=== PATIENT | female | born 1970 | race Caucasian/White ===

== ENCOUNTER 2020-08-02 16:42 | Emergency (ER) | payer MEDICAID, OTHER ==
--- OUTSIDE RECORDS SUMMARY | 2020-08-02 16:45 | XMS REPORT | Continuity of Care Document ---
:1970 Author Organization [facility] t Address [address] [place] [address] Care Team Providers Name Role Phone Provider, Urgent Care Attending Clinician Unavailable Sim DO Attending Clinician Problems This patient has no known problems. Allergies, Adverse Reactions, Alerts This patient has no known allergies or adverse reactions. Medications This patient has no known medications. Procedures This patient has no known procedures. Encounters Start End Encounter Admission Attending Care Care Encounter Source Date/Time Date/Time Type Type Clinicians Facility Department ID 2020-07-28 2020-07-28 Urgent Suzanne [facility] [id number] 18:16:33 18:36:33 Care [facility] [id number] [facility] [id number] Professio [phone] nal 044 Office Building One 2019-11-07 2019-11-07 Office HERIBERTO Montemayor [id number] 11:03:22 11:23:22 Visit [facility] [id number] [place] [id number] Professio [phone] nal [phone] Building Results This patient has no known results.
[2020-08-02 18:03] LABS: Urine Blood TRACE (Negative); Urine Glucose NEGATIVE (Negative); Urine Protein TRACE (Negative)
[2020-08-02 18:33] LABS: Urine Amorphous Sediment 2+ /HPF (NONE SEEN); Urine Bacteria 20-50 /HPF (<20); Urine RBC <5 /HPF (NONE SEEN)
[2020-08-02 18:48] LABS: Potassium 3.6 mmol/L (3.5-5.1)
--- NOTE | 2020-08-02 19:03 | RAD REPORT ---
EXAM DESCRIPTION: CT - Abdomen Pelvis W Contrast - 08/02/2020 6:49 pm CLINICAL HISTORY: Abdominal pain COMPARISON: CT scan 2016. TECHNIQUE: Computed axial tomography of the abdomen pelvis was obtained. 100 cc Isovue-300 was admin istered intravenously. Oral contrast was not requested which limits evaluation of bowel. All CT scans are performed using dose optimization technique as appropriate and may include automated exposure control or mA/KV adjustment according to patient size. FINDINGS: Subcentimeter bilateral lung nodules unchanged. The liver, spleen, pancreas, adrenal and kidneys appear unremarkable. There is no evidence of diverticulitis. Normal appendix. Tiny umbilical hernia. Cholecystectomy IMPRESSION: No acute abnormality is displayed.
--- NOTE | 2020-08-02 19:27 | ER ---
Nurse's Notes [facility] Name: Cecille Del Cid Age: 50 yrs Sex: Female : 1970 Arrival Date: 08/02/2020 Time: 16:49 Bed 13 Private MD: Diagnosis: Urinary tract infection, site not specified Presentation: 08/02 16:53 Chief complaint: Patient states: "I was seen in [place] last week and given an jd3 antibiotic for a UTI and now I think I have a yeast infection that has moved to my kidneys.". Coronavirus screen: At this time, the client does not indicate any symptoms associated with coronavirus-19. Ebola Screen: Patient negative for fever greater than or equal to 101.5 degrees Fahrenheit, and additional compatible Ebola Virus Disease symptoms. Initial Sepsis Screen: Does the patient meet any 2 criteria? No. Patient's initial sepsis screen is negative. Does the patient have a suspected source of infection? No. Patient's initial sepsis screen is negative. Risk Assessment: Do you want to hurt yourself or someone else? Patient reports no desire to harm self or others. Onset of symptoms was July 09, 2020. 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 - Social history:: Smoking status: Patient reports the use of cigarette tobacco products, smokes one pack cigarettes per day. Screenin:39 Abuse screen: Denies threats or abuse. Denies injuries from another. Nutritional zb screening: No deficits noted. Tuberculosis screening: No symptoms or risk factors identified. Fall Risk None identified. Assessment: 17:15 Reassessment: ecp at bedside. zb 17:38 General: Appears in no apparent distress. uncomfortable, Behavior is calm, cooperative, zb appropriate for age. Pain: Complains of pain in back. Neuro: Level of Consciousness is awake, alert, obeys commands, Oriented to person, place, time, situation. Cardiovascular: Patient's skin is warm and dry. Respiratory: Airway is patent Respiratory effort is even, unlabored, Respiratory pattern is regular, symmetrical. : Urine is cloudy, Reports urgency, urinary frequency, vaginal itching. Derm: Skin is intact, is healthy with good turgor, Skin is dry, Skin is normal, Skin temperature is warm. Musculoskeletal: Range of motion: intact in all extremities. 18:38 Reassessment: Patient appears in no apparent distress at this time. Patient and/or zb family updated on plan of care and expected duration. Pain level reassessed. Patient is alert, oriented x 3, equal unlabored respirations, skin warm/dry/pink. 18:58 Reassessment: patient returned from ct. zb 19:45 Reassessment: Patient appears in no apparent distress at this time. Patient and/or zb family updated on plan of care and expected duration. Pain level reassessed. Patient is alert, oriented x 3, equal unlabored respirations, skin warm/dry/pink. D/C INSTRUCTIONS GIVEN. PT AMBULATED OUT. GAIT STEADY AND EVEN ON D/C. Vital Signs: 16:57 BP 145 / 101; Pulse 114; Resp 17 S; Temp 98.0(TE); Pulse Ox 98% on R/A; Weight 90.72 kg jd3 (R); Height 5 ft. 2 in. (157.48 cm) (R); Pain 9/10; 19:44 BP 140 / 95; Pulse 100; Resp 16; Pulse Ox 99% on R/A; zb 16:57 Body Mass Index 36.58 (90.72 kg, 157.48 cm) jd3 ED Course: 16:49 Patient arrived in ED. am2 16:54 Triage completed. jd3 16:58 Arm band placed on. jd3 17:00 Tierra Gay FNP-C is [facility]. kb 17:00 Joel Lyman MD is Attending Physician. kb 17:15 Karina Pat RN is Primary Nurse. zb 17:39 Urine collected: clean catch specimen, maegan colored. zb 17:40 Allergy band placed. Bed in low position. Call light in reach. Side rails up X 1. Pulse zb ox on. NIBP on. Door closed. Noise minimized. 18:49 CT Abd/Pelvis - IV Contrast Only In Process Unspecified. EDMS 19:44 No provider procedures requiring assistance completed. IV discontinued, intact, zb bleeding controlled, No redness/swelling at site. Pressure dressing applied. Administered Medications: No medications were administered Outcome: 19:27 Discharge ordered by . kb 19:45 Discharged to home ambulatory, with family. zb 19:45 Condition: stable 19:45 Discharge instructions given to patient, Instructed on discharge instructions, follow up and referral plans. medication usage, Demonstrated understanding of instructions, follow-up care, medications, Prescriptions given X 2. 19:45 Patient left the ED. zb Signatures: Dispatcher [employer] EDMS Tierra Gay, SEAM FELLER-C SEAM FELLER-CkWendy Vanegas Jonathon, RN RN Karina Amaral RN RN zb
--- NOTE | 2020-08-02 19:27 | EDPHYS ---
Physician Documentation [facility] Name: Cecille Del Cid Age: 50 yrs Sex: Female : 1970 Arrival Date: 08/02/2020 Time: 16:49 Bed 13 Private MD: ZOHAIB Physician Joel Lyman HPI: 08/02 18:50 This 50 yrs old Female presents to ER via Ambulatory with complaints of Flank kb Pain, Back Pain. 18:50 The patient complains of pain in the left flank and right flank. The pain radiates to kb the abdomen. Onset: The symptoms/episode began/occurred 2 month(s) ago, and became worse today. Modifying factors: The symptoms are alleviated by nothing. the symptoms are aggravated by nothing. Associated signs and symptoms: Pertinent positives: dysuria. Severity of pain: At its worst the pain was moderate in the emergency department the pain is unchanged. The patient has not experienced similar symptoms in the past. The patient has been recently seen by a physician:. Pt reports she has had a UTI for 2 months. Reports foul smelling urine and intermittent dysuria. Went to PCP on 07/28/20 and was given keflex for a UTI. States it wasn't working so she stopped taking it yesterday. Now having bilateral flank pain. 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 - Social history:: Smoking status: Patient reports the use of cigarette tobacco products, smokes one pack cigarettes per day. ROS: 18:49 Constitutional: Negative for fever, chills, and weight loss, Abdomen/GI: Negative for kb abdominal pain, nausea, vomiting, diarrhea, and constipation, MS/Extremity: Negative for injury and deformity, Skin: Negative for injury, rash, and discoloration, Neuro: Negative for headache, weakness, numbness, tingling, and seizure. 18:49 Back: Positive for flank pain, bilaterally. 18:49 : Positive for burning with urination, foul smelling urine. Exam: 18:50 Constitutional: This is a well developed, well nourished patient who is awake, alert, kb and in no acute distress. Head/Face: Normocephalic, atraumatic. Cardiovascular: Regular rate and rhythm with a normal S1 and S2. No gallops, murmurs, or rubs. No pulse deficits. Respiratory: Respirations even and unlabored. No increased work of breathing, no retractions or nasal flaring. Skin: Warm, dry with normal turgor. Normal color. MS/ Extremity: Pulses equal, no cyanosis. Neurovascular intact. Full, normal range of motion. Neuro: Awake and alert, GCS 15, oriented to person, place, time, and situation. Moves all extremities. Normal gait. 18:50 Abdomen/GI: Inspection: abdomen appears normal, Bowel sounds: normal, Palpation: soft, in all quadrants, mild abdominal tenderness, in the suprapubic area, right lower quadrant and left lower quadrant. 18:50 Back: CVA tenderness, that is mild, is noted bilaterally. Vital Signs: 16:57 BP 145 / 101; Pulse 114; Resp 17 S; Temp 98.0(TE); Pulse Ox 98% on R/A; Weight 90.72 kg jd3 (R); Height 5 ft. 2 in. (157.48 cm) (R); Pain 9/10; 19:44 BP 140 / 95; Pulse 100; Resp 16; Pulse Ox 99% on R/A; zb 16:57 Body Mass Index 36.58 (90.72 kg, 157.48 cm) jd3 MDM: 17:00 Patient medically screened. kb 18:49 Data reviewed: vital signs, nurses notes. Data interpreted: Pulse oximetry: on room air kb is 98 %. Interpretation: normal. Counseling: I had a detailed discussion with the patient and/or guardian regarding: the historical points, exam findings, and any diagnostic results supporting the discharge/admit diagnosis, lab results, radiology results, the need for outpatient follow up, a family practitioner, to return to the emergency department if symptoms worsen or persist or if there are any questions or concerns that arise at home. 08/02 17:00 Order name: Basic Metabolic Panel; Complete Time: 18:54 kb 08/02 17:00 Order name: Urine Microscopic Only; Complete Time: 18:36 kb 08/02 17:50 Order name: Urine Dipstick--Ancillary (enter results); Complete Time: 18:03 eb 08/02 17:50 Order name: Urine --Ancillary (enter results); Complete Time: 18:03 eb 08/02 18:34 Order name: Urine Culture [facility] 08/02 17:00 Order name: Urine Test (obtain specimen); Complete Time: 18:51 kb 08/02 17:00 Order name: Urine Dipstick-Ancillary (obtain specimen); Complete Time: 18:51 kb 08/02 17:00 Order name: IV Start; Complete Time: 17:53 kb 08/02 18:04 Order name: CT Abd/Pelvis - IV Contrast Only; Complete Time: 19:20 kb Administered Medications: No medications were administered Disposition: 08/03 08:52 Co-signature as Attending Physician, Joel Lyman MD I agree with the assessment and sara plan of care. Disposition: 08/02/20 19:27 Discharged to Home. Impression: Urinary tract infection, site not specified. - Condition is Stable. - Discharge Instructions: Urinary Tract Infection, Adult, [id number]. - Prescriptions for Macrobid 100 mg Oral Capsule - take 1 capsule by ORAL route every 12 hours for 5 days; 10 capsule. Fluconazole 150 mg Oral Tablet - take 1 tablet by ORAL route once daily Take once, may repeat in 3 days for persistent symptoms; 2 tablet. - Medication Reconciliation Form, Thank You Letter, Antibiotic Education, Prescription Opioid Use form. - Follow up: Emergency Department; When: As needed; Reason: Worsening of condition. Follow up: Private Physician; When: 2 - 3 days; Reason: Recheck today's complaints, Continuance of care, Re-evaluation by your physician. Signatures: Dispatcher [employer] [facility] Tierra Gay, Joel Xiong MD MD cha Davies, Jonathon, RN RN Karina Amaral RN RN zb Corrections: (The following items were deleted from the chart) 08/02 19:45 19:27 08/02/2020 19:27 Discharged to Home. Impression: Urinary tract infection, site zb not specified. Condition is Stable. Forms are Medication Reconciliation Form, Thank You Letter, Antibiotic Education, Prescription Opioid Use. Follow up: Emergency Department; When: As needed; Reason: Worsening of condition. Follow up: Private Physician; When: 2 - 3 days; Reason: Recheck today's complaints, Continuance of care, Re-evaluation by your physician. kb
[2020-08-02 19:50] VITALS: TEMP 98
[2020-08-02 19:52] VITALS: BP 140/95; O2SAT 99
[2020-08-04 14:49] LABS: Urine Blood Trace-intact (Negative); Urine Glucose Negative (Negative); Urine Protein Trace (Negative); Urine Specific Gravity >=1.030 (1.005-1.030)
== END 2020-08-02 19:45 | disposition home or self-care (01) ==
LOC: ER 16:42
DX: N39.0 Urinary tract infection, site not specified (principal); F17.210 Nicotine dependence, cigarettes, uncomplicated; Z88.8 Allergy status to other drugs, medicaments and biological substances
CPT/HCPCS: 87088; 87086; 80048; 36415; 81025; 82565; 74177; Q9967; 81003; 81015; 99284

== ENCOUNTER 2020-09-26 21:08 | Emergency (ER) | payer OTHER ==
[2020-09-26 23:00] LABS: Absolute Lymphocytes (CBC) 3.1 K/uL (0.7-4.9); Basophils % 0.9 % (0-1.3); Hematocrit 39.8 % (36.0-45.0); MPV 8.3 fL (7.6-11.3); RBC Red Blood Cell Count 4.43 M/uL (3.86-4.86)
[2020-09-26 23:05] LABS: Protime INR 0.98
[2020-09-26 23:18] LABS: ALT/SGPT 43 U/L (12-78); AST/SGOT 18 U/L (15-37); Albumin 3.5 g/dL (3.4-5.0); Alkaline Phosphatase 140 U/L (45-117); BUN Blood Urea Nitrogen 11 mg/dL (7-18); Bicarbonate 29 mmol/L (21-32); Bilirubin Direct < 0.1 mg/dL (0-0.2); Bilirubin Total 0.1 mg/dL (0.2-1.0); Glucose Level 96 mg/dL (74-106); Magnesium 2.3 mg/dL (1.8-2.4); NT PRO-BNP 97 pg/mL (<125); Potassium 3.8 mmol/L (3.5-5.1); Protein, Total 7.4 g/dL (6.4-8.2); Sodium Level 143 mmol/L (136-145); Troponin (Emerg Dept Use Only) < 0.02 ng/mL (0.0-0.045)
[2020-09-27] MEDS ORDERED: NA CHLORIDE 0.9% 1,000 ML ONE (00:39)
--- NOTE | 2020-09-27 01:15 | ER ---
Nurse's Notes [facility] Name: Cecille Del Cid Age: 50 yrs Sex: Female : 1970 Arrival Date: 09/26/2020 Time: 21:12 Bed 14 Private MD: Diagnosis: Pharyngitis;Sinusitis;Bronchitis Presentation: 09/26 21:35 Chief complaint: Patient states: Reports she started having chest pain last night and ea throught out the day it has gotten worse, sinus pressure, congestion, sore throat, swollen tonsils. Coronavirus screen: At this time, the client does not indicate any symptoms associated with coronavirus-19. Ebola Screen: No symptoms or risks identified at this time. Initial Sepsis Screen: Does the patient meet any 2 criteria? No. Patient's initial sepsis screen is negative. Does the patient have a suspected source of infection? No. Patient's initial sepsis screen is negative. Risk Assessment: Do you want to hurt yourself or someone else? Patient reports no desire to harm self or others. Onset of symptoms was September 26, 2020. 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 - Social history:: Smoking status: Patient reports the use of cigarette tobacco products, smokes one pack cigarettes per day. Screenin:34 Abuse screen: Denies threats or abuse. Nutritional screening: No deficits noted. ea Tuberculosis screening: No symptoms or risk factors identified. Fall Risk None identified. Assessment: 23:00 General: Appears in no apparent distress. Behavior is calm, cooperative, appropriate zb for age. Pain: Complains of pain in neck, face and chest Pain does not radiate. Pain currently is 7 out of 10 on a pain scale. Pain began 2-3 days ago. Neuro: Level of Consciousness is awake, alert, obeys commands, Oriented to person, place, time, situation. Cardiovascular: Patient's skin is warm and dry. Respiratory: Airway is patent Trachea midline Respiratory effort is even, unlabored, Respiratory pattern is regular, symmetrical. GI: Abdomen is flat. EENT: Throat is reddened has enlarged tonsils bilaterally. Derm: Skin is intact, is healthy with good turgor, Skin is dry, Skin is normal. Vital Signs: 21:35 BP 130 / 60; Pulse 99; Resp 18; Temp 98.8; Pulse Ox 98% ; Weight 58.97 kg; Height 5 ft. ea 5 in. (165.10 cm); 23:18 BP 114 / 91; Pulse 65; Resp 16; Pulse Ox 92% on R/A; zb 09/27 01:32 BP 116 / 60; Pulse 60; Resp 18; Temp 98.7; Pulse Ox 98% ; ea 09/26 21:35 Body Mass Index 21.63 (58.97 kg, 165.10 cm) ea ED Course: 09/26 21:12 Patient arrived in ED. bp1 21:30 Patient has correct armband on for positive identification. hospital monitor on. Pulse zb ox on. NIBP on. 21:37 Triage completed. ea 21:50 Chest Single View XRAY In Process Unspecified. EDMS 21:53 Karina Pat, RN is Primary Nurse. zb 22:01 Spencer Scott MD is Attending Physician. mh7 22:50 Inserted saline lock: 20 gauge in right antecubital area, using aseptic technique. ea Blood collected. 23:17 Patient maintains SpO2 saturation greater than 95% on room air. zb 23:17 Arm band placed on. zb 09/27 01:31 No provider procedures requiring assistance completed. IV discontinued, intact, ea bleeding controlled, No redness/swelling at site. Pressure dressing applied. Administered Medications: 00:34 Drug: NS 0.9% 1000 ml Route: IV; Rate: 1000 ml; Site: right antecubital; ea 01:31 Follow up: Response: No adverse reaction; IV Status: Completed infusion; IV Intake: ea 900ml 01:15 Drug: Tylenol 1000 mg Route: PO; ea :31 Follow up: Response: Medication administered at discharge. ea 01:31 Drug: predniSONE 60 mg Route: PO; ea :31 Follow up: Response: Medication administered at discharge. ea Intake: :31 IV: 900ml; Total: 900ml. ea Outcome: 01:15 Discharge ordered by MD. kendall 01:32 Discharged to home ambulatory, with family. stephanie 01:32 Condition: stable 01:32 Discharge instructions given to patient, Instructed on discharge instructions, follow up and referral plans. medication usage, Demonstrated understanding of instructions, follow-up care, medications, Prescriptions given X 4. 01:32 Patient left the ED. stephanie Signatures: Dispatcher [employer] EDMS Dania Dubose, RN RN Patricia Julien Maurice, MD MD [id number] Brown, Zipporah, RN RN zb
--- NOTE | 2020-09-27 01:15 | EDPHYS ---
Physician Documentation [facility] Name: Cecille Del Cid Age: 50 yrs Sex: Female : 1970 Arrival Date: 09/26/2020 Time: 21:12 Bed 14 Private MD: ED Physician Spencer Scott HPI: 09/27 00:39 This 50 yrs old Female presents to ER via Ambulatory with complaints of Chest mh7 Pain, Sore Throat. 00:39 The patient or guardian reports cough, that is intermittent, described as moderate, mh7 with no sputum, flu symptoms, myalgias, Sore throat, sinus pain, congestion, chest pain due to cough. Onset: The symptoms/episode began/occurred 2 day(s) ago. Severity of symptoms: At their worst the symptoms were moderate, yesterday, in the emergency department the symptoms have improved, moderately. Modifying factors: The symptoms are alleviated by nothing, the symptoms are aggravated by nothing. Associated signs and symptoms: Pertinent positives: chest pain, with cough, sore throat, Pertinent negatives: diarrhea, ear ache, fever, nausea, rhinorrhea, vomiting. 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 - Social history:: Smoking status: Patient reports the use of cigarette tobacco products, smokes one pack cigarettes per day. ROS: 09/27 00:39 Constitutional: Negative for fever, chills, and weight loss, Eyes: Negative for injury, mh7 pain, redness, and discharge, Neck: Negative for injury, pain, and swelling. Abdomen/GI: Negative for abdominal pain, nausea, vomiting, diarrhea, and constipation, Back: Negative for injury and pain, : Negative for injury, bleeding, discharge, and swelling, MS/Extremity: Negative for injury and deformity, Skin: Negative for injury, rash, and discoloration, Neuro: Negative for headache, weakness, numbness, tingling, and seizure, Psych: Negative for depression, anxiety, suicide ideation, homicidal ideation, and hallucinations, Allergy/Immunology: Negative for hives, rash, and allergies, Endocrine: Negative for neck swelling, polydipsia, polyuria, polyphagia, and marked weight changes, Hematologic/Lymphatic: Negative for swollen nodes, abnormal bleeding, and unusual bruising. Respiratory: Negative for dyspnea on exertion, hemoptysis, orthopnea, pleurisy, shortness of breath, sputum production, wheezing. Exam: 00:39 Constitutional: This is a well developed, well nourished patient who is awake, alert, mh7 and in no acute distress. Head/Face: Normocephalic, atraumatic. Eyes: Pupils equal round and reactive to light, extra-ocular motions intact. Lids and lashes normal. Conjunctiva and sclera are non-icteric and not injected. Cornea within normal limits. Periorbital areas with no swelling, redness, or edema. 00:39 Neck: Trachea midline, no thyromegaly or masses palpated, and no cervical lymphadenopathy. Supple, full range of motion without nuchal rigidity, or vertebral point tenderness. No Meningismus. Chest/axilla: Normal chest wall appearance and motion. Nontender with no deformity. No lesions are appreciated. Cardiovascular: Regular rate and rhythm with a normal S1 and S2. No gallops, murmurs, or rubs. Normal PMI, no JVD. No pulse deficits. Respiratory: Lungs have equal breath sounds bilaterally, clear to auscultation and percussion. No rales, rhonchi or wheezes noted. No increased work of breathing, no retractions or nasal flaring. Abdomen/GI: Soft, non-tender, with normal bowel sounds. No distension or tympany. No guarding or rebound. No evidence of tenderness throughout. Back: No spinal tenderness. No costovertebral tenderness. Full range of motion. Skin: Warm, dry with normal turgor. Normal color with no rashes, no lesions, and no evidence of cellulitis. MS/ Extremity: Pulses equal, no cyanosis. Neurovascular intact. Full, normal range of motion. Neuro: Awake and alert, GCS 15, oriented to person, place, time, and situation. Cranial nerves II-XII grossly intact. Motor strength 5/5 in all extremities. Sensory grossly intact. Cerebellar exam normal. Normal gait. Psych: Awake, alert, with orientation to person, place and time. Behavior, mood, and affect are within normal limits. 00:39 ENT: Mouth: is normal, Posterior pharynx: Airway: normal, Tonsils: bilaterally enlarged, Uvula: normal, swelling, is not appreciated, erythema, that is mild, exudate, is not appreciated, peritonsillar mass, is not appreciated, pooling of secretions, is not appreciated, Dental exam: normal, Voice: is normal, Breath odor: is normal. Vital Signs: 09/26 21:35 BP 130 / 60; Pulse 99; Resp 18; Temp 98.8; Pulse Ox 98% ; Weight 58.97 kg; Height 5 ft. ea 5 in. (165.10 cm); 23:18 BP 114 / 91; Pulse 65; Resp 16; Pulse Ox 92% on R/A; zb 09/27 01:32 BP 116 / 60; Pulse 60; Resp 18; Temp 98.7; Pulse Ox 98% ; ea 09/26 21:35 Body Mass Index 21.63 (58.97 kg, 165.10 cm) MDM: 01:13 Differential Diagnosis: Bronchitis Influenza Upper Respiratory Infection Sinusitis 7 Pharyngitis Viral Syndrome Pneumonia. Data reviewed: vital signs, nurses notes, lab test result(s), cardiac enzymes, CBC, electrolytes, EKG, radiologic studies, plain films. Data interpreted: Pulse oximetry: on room air is 97 %. Interpretation: normal. Counseling: I had a detailed discussion with the patient and/or guardian regarding: the historical points, exam findings, and any diagnostic results supporting the discharge/admit diagnosis, lab results, radiology results, the need for outpatient follow up, to return to the emergency department if symptoms worsen or persist or if there are any questions or concerns that arise at home. Response to treatment: the patient's symptoms have markedly improved after treatment, patient is well hydrated. 01:15 Patient medically screened. [facility] 09/26 21:38 Order name: Flu 09/26 21:38 Order name: Influenza Screen (A ; Complete Time: 22:53 EDMS 09/26 22:21 Order name: Strep; Complete Time: 00:34 zb 09/26 22:25 Order name: Basic Metabolic Panel 09/26 22:25 Order name: CBC with Diff; Complete Time: 23:15 09/26 22:25 Order name: LFT's 09/26 21:38 Order name: Chest Single View XRAY 09/26 22:25 Order name: Magnesium; Complete Time: 00:10 09/26 22:25 Order name: NT PRO-BNP; Complete Time: 00:10 09/26 22:25 Order name: PT-INR; Complete Time: 23:15 09/26 22:25 Order name: Troponin (emerg Dept Use Only); Complete Time: 00:10 09/26 22:25 Order name: Basic Metabolic Panel; Complete Time: 00:10 EDAK 09/26 22:25 Order name: Liver (Hepatic) Function; Complete Time: 00:10 [facility] 09/26 21:38 Order name: EKG; Complete Time: 21:38 09/26 21:38 Order name: EKG - Nurse/Tech; Complete Time: 21:47 09/26 22:25 Order name: Cardiac monitoring; Complete Time: 22:28 09/26 22:25 Order name: IV Saline Lock; Complete Time: 22:28 09/26 22:25 Order name: Labs collected and sent; Complete Time: 23:16 09/26 22:25 Order name: O2 Per Protocol; Complete Time: 22:29 09/26 22:25 Order name: O2 Sat Monitoring; Complete Time: 22:29 ea Administered Medications: 00:34 Drug: NS 0.9% 1000 ml Route: IV; Rate: 1000 ml; Site: right antecubital; ea 01:31 Follow up: Response: No adverse reaction; IV Status: Completed infusion; IV Intake: ea 900ml 01:15 Drug: Tylenol 1000 mg Route: PO; ea 01:31 Follow up: Response: Medication administered at discharge. ea 01:31 Drug: predniSONE 60 mg Route: PO; ea 01:31 Follow up: Response: Medication administered at discharge. ea Disposition: 09/27/20 01:15 Discharged to Home. Impression: Pharyngitis, Sinusitis, Bronchitis. - Condition is Stable. - Discharge Instructions: Sinusitis, Adult, [id number]-[id number], Acute Bronchitis, Guln-mn-Rwdl, Pharyngitis, Fenn-gn-Dyhu. - Prescriptions for Zithromax Z- Manny 250 mg Oral Tablet - take 1 tablet by ORAL route as directed for 5 days Day 1 - take two (2) tablets one time. Day 2, 3, 4 , 5 take one (1) tablet once daily.; 6 tablet. Prednisone 20 mg Oral Tablet - take 2 tablet by ORAL route once daily for 5 days; 10 tablet. Albuterol Sulfate 90 mcg/actuation - inhale 1-2 puff by INHALATION route every 4-6 hours; 1 Inhaler. Fluconazole 150 mg Oral Tablet - take 1 tablet by ORAL route one time; 1 tablet. - Medication Reconciliation Form, Thank You Letter, Antibiotic Education, Prescription Opioid Use form. - Follow up: Private Physician; When: 1 - 2 days; Reason: Worsening of condition, Recheck today's complaints, Continuance of care, Re-evaluation by your physician. - Problem is new. - Symptoms have improved. Signatures: Dispatcher [employer] Dania Gaming RN RN ea Holmes, Maurice, MD MD mh7 Corrections: (The following items were deleted from the chart) 01:32 01:15 09/27/2020 01:15 Discharged to Home. Impression: Pharyngitis; Sinusitis; ea Bronchitis. Condition is Stable. Forms are Medication Reconciliation Form, Thank You Letter, Antibiotic Education, Prescription Opioid Use. Follow up: Private Physician; When: 1 - 2 days; Reason: Worsening of condition, Recheck today's complaints, Continuance of care, Re-evaluation by your physician. Problem is new. Symptoms have improved. mh7
[2020-09-27] MEDS ORDERED: ACETAMINOPHEN 500 MG TAB ONE (01:28)
[2020-09-27] MEDS ORDERED: predniSONE 20 MG TAB ONE (01:44)
[2020-09-27 02:54] VITALS: BP 116/60; TEMP 98.7; O2SAT 98
--- NOTE | 2020-09-27 11:48 | RAD REPORT ---
EXAM DESCRIPTION: RAD - Chest Single View - 09/26/2020 9:50 pm CLINICAL HISTORY: CHEST PAIN Chest pain. COMPARISON: CHEST PA AND LAT 2 VIEW dated 03/20/2015; CHEST PA AND LAT 2 VIEW dated 01/28/2011 FINDINGS: Portable technique limits examination quality. The lungs are grossly clear. The heart is normal in size. No displaced fractures. IMPRESSION: No acute intrathoracic process suspected.
== END 2020-09-27 01:32 | disposition home or self-care (01) ==
LOC: ER 21:08
DX: J40 Bronchitis, not specified as acute or chronic (principal); J32.9 Chronic sinusitis, unspecified; F17.210 Nicotine dependence, cigarettes, uncomplicated; Z88.8 Allergy status to other drugs, medicaments and biological substances
CPT/HCPCS: 93005; 85025; 80048; 36415; 83735; 85610; 80076; 87081; 84484; 83880; 87804 ×2; 71045; 96360; 99285; J7512; J7030

== ENCOUNTER 2021-01-27 11:19 | Inpatient (IN) | payer OTHER ==
[2021-01-27 11:58] LABS: Urine Blood 2+ (Negative); Urine Glucose Negative (Negative); Urine Protein Negative (Negative); Urine Specific Gravity >=1.030 (1.005-1.030)
[2021-01-27 12:24] LABS: Urine Specific Gravity/Preg >1.030 (1.005-1.030)
[2021-01-27 12:25] LABS: Absolute Lymphocytes (CBC) 2.6 K/uL (0.7-4.9); Basophils % 0.5 % (0-1.3); Hematocrit 42.9 % (36.0-45.0); Lymphocytes % 29.5 % (15.3-44.8); RBC Red Blood Cell Count 4.83 M/uL (3.86-4.86)
[2021-01-27 12:26] LABS: Protime INR 0.96
--- NOTE | 2021-01-27 12:27 | RAD REPORT ---
EXAM DESCRIPTION: RAD - Chest Single View - 01/27/2021 12:20 pm CLINICAL HISTORY: CHEST PAIN COMPARISON: Chest Single View dated 09/26/2020; CHEST PA AND LAT 2 VIEW dated 03/20/2015; CHEST PA AND LAT 2 VIEW dated 01/28/2011 FINDINGS: Lines: None. Lungs: No evidence of edema or pneumonia. Pleural: No significant pleural effusions or pneumothorax. Cardiac: The heart size is within normal limits. Bones: No acute fractures. Other: IMPRESSION: No acute cardiopulmonary disease.
[2021-01-27 12:31] LABS: Barbiturates NEGATIVE (NEGATIVE); Benzodiazepines NEGATIVE (NEGATIVE); Cocaine NEGATIVE (NEGATIVE); METHAMPHETAM NEGATIVE (NEGATIVE); Methadone NEGATIVE (NEGATIVE); Opiates NEGATIVE (NEGATIVE); Phencyclidine NEGATIVE (NEGATIVE); THC Cannibis NEGATIVE (NEGATIVE)
[2021-01-27 12:53] LABS: ALT/SGPT 49 U/L (12-78); AST/SGOT 27 U/L (15-37); Albumin 3.9 g/dL (3.4-5.0); Alkaline Phosphatase 149 U/L (45-117); BUN Blood Urea Nitrogen 10 mg/dL (7-18); Bicarbonate 27 mmol/L (21-32); Bilirubin Direct < 0.1 mg/dL (0-0.2); Bilirubin Total 0.3 mg/dL (0.2-1.0); Glucose Level 117 mg/dL (74-106); Magnesium 2.2 mg/dL (1.8-2.4); NT PRO-BNP 40 pg/mL (<125); Potassium 3.9 mmol/L (3.5-5.1); Protein, Total 7.7 g/dL (6.4-8.2); Sodium Level 141 mmol/L (136-145); Troponin (Emerg Dept Use Only) < 0.02 ng/mL (0.0-0.045)
[2021-01-27] MEDS ORDERED: ASPIRIN 81 MG CHEWABLE TABLET ONE (13:30)
[2021-01-27] MEDS ORDERED: FAMOTIDINE 20 MG/2 ML VIAL IV ONE (13:31)
[2021-01-27] MEDS ORDERED: MORPHINE 4 MG/ML SYR ONE (13:31)
[2021-01-27] MEDS ORDERED: ONDANSETRON 4 MG/2 ML VIAL ONE (13:31)
--- NOTE | 2021-01-27 13:52 | EDPHYS ---
Physician Documentation [facility] Name: Cecille Del Cid Age: 50 yrs Sex: Female : 1970 Arrival Date: 01/27/2021 Time: 11:20 Bed 13 Private MD: ED Physician Perry Pires HPI: 01/27 13:43 This 50 yrs old Female presents to ER via Ambulatory with complaints of Chest kdr Pain - x3 Days, Arm Pain. 13:43 The patient or guardian reports chest pain that is located primarily in the anterior kdr chest wall, left. Onset: gradually, 3 day(s) ago. The pain radiates to the left arm, the left shoulder. Associated signs and symptoms: Pertinent positives: diaphoresis, nausea, shortness of breath. The chest pain is described as aching, burning, dull. Duration: The patient or guardian reports a single episode, that is still ongoing, States that she has had intermittent chest discomfort that has waxed and waned over the past 3 to 4 days. She states that with any exertion she gets short of breath. That she can walk up or down stairs without getting short of breath and having worsening chest pain. She states that even walking on level ground she has chest discomfort that is burning and radiating to her shoulder and arm. She gives a family history of multiple stents in her mother and siblings. She additionally relates that numerous family members have at an early age secondary to cardiac events. Severity of pain: At its worst the pain was mild moderate just prior to arrival, in the emergency department the pain is unchanged. The patient has experienced similar episodes in the past, multiple times, Patient states that over the past 3 to 4 months she has had increasing discomfort with exertion. The patient has been recently seen by a physician:. 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 - Social history:: Smoking status: Patient reports the use of cigarette tobacco products, smokes one pack cigarettes per day. ROS: 13:43 Constitutional: Negative for fever, chills, and weight loss, Eyes: Negative for injury, kdr pain, redness, and discharge, ENT: Negative for injury, pain, and discharge, Neck: Negative for injury, pain, and swelling, Respiratory: Negative for shortness of breath, cough, wheezing, and pleuritic chest pain, Abdomen/GI: Negative for abdominal pain, nausea, vomiting, diarrhea, and constipation, Back: Negative for injury and pain, : Negative for injury, bleeding, discharge, and swelling, MS/Extremity: Negative for injury and deformity, Skin: Negative for injury, rash, and discoloration, Neuro: Negative for headache, weakness, numbness, tingling, and seizure activity. Psych: Negative for depression, anxiety, suicide ideation, homicidal ideation, and hallucinations, Allergy/Immunology: Negative for hives, rash, and allergies, Endocrine: Negative for neck swelling, polydipsia, polyuria, polyphagia, and marked weight changes, Hematologic/Lymphatic: Negative for swollen nodes, abnormal bleeding, and unusual bruising. 13:43 Cardiovascular: Positive for chest pain, Negative for edema, orthopnea, palpitations. Exam: 13:43 Constitutional: This is a well developed, well nourished patient who is awake, alert, kdr and in no acute distress. Head/Face: Normocephalic, atraumatic. Eyes: Pupils equal round and reactive to light, extra-ocular motions intact. Lids and lashes normal. Conjunctiva and sclera are non-icteric and not injected. Cornea within normal limits. Periorbital areas with no swelling, redness, or edema. Neck: Trachea midline, no thyromegaly or masses palpated, and no cervical lymphadenopathy. Supple, full range of motion without nuchal rigidity, or vertebral point tenderness. No Meningismus. Chest/axilla: Normal chest wall appearance and motion. Nontender with no deformity. No lesions are appreciated. Cardiovascular: Regular rate and rhythm with a normal S1 and S2. No gallops, murmurs, or rubs. Normal PMI, no JVD. No pulse deficits. Respiratory: Lungs have equal breath sounds bilaterally, clear to auscultation and percussion. No rales, rhonchi or wheezes noted. No increased work of breathing, no retractions or nasal flaring. Abdomen/GI: Soft, non-tender, with normal bowel sounds. No distension or tympany. No guarding or rebound. No evidence of tenderness throughout. Back: No spinal tenderness. No costovertebral tenderness. Full range of motion. Skin: Warm, dry with normal turgor. Normal color with no rashes, no lesions, and no evidence of cellulitis. MS/ Extremity: Pulses equal, no cyanosis. Neurovascular intact. Full, normal range of motion. Neuro: Awake and alert, GCS 15, oriented to person, place, time, and situation. Cranial nerves II-XII grossly intact. Motor strength 5/5 in all extremities. Sensory grossly intact. Cerebellar exam normal. Normal gait. Psych: Awake, alert, with orientation to person, place and time. Behavior, mood, and affect are within normal limits. 13:43 ECG was reviewed by the Attending Physician. kdr Vital Signs: 11:35 BP 149 / 82; Pulse 92; Resp 17; Temp 98.5(TE); Pulse Ox 98% on R/A; Weight 90.72 kg tw2 (R); Height 5 ft. 2 in. (157.48 cm); Pain 10/10; 12:19 BP 128 / 80; Pulse 84; Resp 17; Pulse Ox 98% on R/A; es2 14:02 BP 110 / 71; Pulse 71; Resp 18; Pulse Ox 99% on R/A; es2 15:06 BP 109 / 63; Pulse 64; Resp 13; Pulse Ox 96% on R/A; es2 15:22 BP 103 / 62; Pulse 63; Resp 1; Pulse Ox 97% on R/A; es2 11:35 Body Mass Index 36.58 (90.72 kg, 157.48 cm) tw2 MDM: 13:43 Data reviewed: vital signs, nurses notes, lab test result(s), radiologic studies. kdr 13:51 Patient medically screened. kdr 01/27 11:58 Order name: Urine --Ancillary (enter results); Complete Time: 13:38 bd 01/27 11:58 Order name: Urine Dipstick-Ancillary; Complete Time: 13:38 EDMS 01/27 11:59 Order name: Basic Metabolic Panel; Complete Time: 13:38 kdr 01/27 11:59 Order name: CBC with Diff; Complete Time: 13:38 kdr 01/27 11:59 Order name: LFT's; Complete Time: 13:38 kdr 01/27 11:59 Order name: Magnesium; Complete Time: 13:38 kdr 01/27 11:59 Order name: NT PRO-BNP; Complete Time: 13:38 kdr 01/27 11:59 Order name: PT-INR; Complete Time: 13:38 kdr 01/27 11:59 Order name: Troponin (emerg Dept Use Only); Complete Time: 13:38 kdr 01/27 11:59 Order name: Acetaminophen; Complete Time: 13:38 kdr 01/27 11:59 Order name: ETOH Level; Complete Time: 13:38 kdr 01/27 11:59 Order name: Ptt, Activated; Complete Time: 13:38 kdr 01/27 11:59 Order name: Salicylate; Complete Time: 13:38 kdr 01/27 11:59 Order name: Urine Drug Screen; Complete Time: 13:38 kdr 01/27 11:59 Order name: XRAY Chest (1 view); Complete Time: 13:38 kdr 01/27 11:59 Order name: EKG; Complete Time: 12:00 kdr 01/27 11:59 Order name: Cardiac monitoring; Complete Time: 12:16 kdr 01/27 11:59 Order name: EKG - Nurse/Tech; Complete Time: 12:03 kdr 01/27 11:59 Order name: IV Saline Lock; Complete Time: 12:16 kdr 01/27 11:59 Order name: Labs collected and sent; Complete Time: 12:16 kdr 01/27 11:59 Order name: O2 Per Protocol; Complete Time: 12:16 kdr 01/27 11:59 Order name: O2 Sat Monitoring; Complete Time: 12:16 kdr 01/27 15:56 Order name: Diet Heart Healthy; Complete Time: 15:57 es2 01/27 16:11 Order name: SARS-COV-2 RT PCR EDMS 01/27 11:59 Order name: Urine Dipstick-Ancillary (obtain specimen); Complete Time: 12:03 kdr EC:43 Rate is 86 beats/min. Rhythm is regular, Sinus Rhythm with No ectopy. QRS [place] is kdr Normal. [place] interval is normal. QRS interval is normal. QT interval is normal. Clinical impression: NSR w/ Non-specific ST/T Changes. Administered Medications: 13:13 Drug: morphine 4 mg {Note: Rass 0.} Route: IVP; Site: right antecubital; es2 13:14 Follow up: Response: No adverse reaction es2 13:13 Drug: Zofran (Ondansetron) 4 mg Route: IVP; Site: right antecubital; es2 13:13 Follow up: Response: No adverse reaction es2 13:13 Drug: Aspirin Chewable Tablet 324 mg Route: PO; es2 13:13 Follow up: Response: No adverse reaction es2 13:13 Drug: Pepcid (famotidine) 20 mg Route: IVP; Site: right antecubital; es2 13:13 Follow up: Response: No adverse reaction es2 Disposition Summary: 01/27/21 13:51 Hospitalization Ordered Hospitalization Status: Observation kdr Provider: Bryce Nicholas Location: Telemetry/MedSurg (observation) kdr Condition: Fair kdr Problem: an ongoing problem kdr Symptoms: are unchanged kdr Bed/Room Type: Standard kdr Room Assignment: 424(01/27/21 17:44) bd Diagnosis - Chest pain on breathing kdr - Unstable angina kdr Forms: - Medication Reconciliation Form kdr - SBAR form kdr Signatures: Dispatcher [employer] EDMS Odalys Ulrich bd Perry Pires MD MD kdr Kelsey Sanders RN RN tw2 Nahomy Agarwal RN RN es2 Corrections: (The following items were deleted from the chart) 16:10 15:51 CORONAVIRUS+MR.LAB.BRZ ordered. EDMS EDMS 16:11 15:52 CORONAVIRUS+MR.LAB.BRZ ordered. EDMS EDMS 17:44 13:51 kdr bd
--- NOTE | 2021-01-27 13:52 | ER ---
Nurse's Notes [facility] Name: Cecille Del Cid Age: 50 yrs Sex: Female : 1970 Arrival Date: 01/27/2021 Time: 11:20 Bed 13 Private MD: Diagnosis: Chest pain on breathing;Unstable angina Presentation: 01/27 11:30 Chief complaint: Patient states: i feel like i am having a heart attack. my chest hurts tw2 really bad right in the center. started 3 days ago. i was asleep and my left arm has been going numb. its like a really sharp then it eases up \\T\\ then it never goes away. I went to the [facility] on Monday. they did blood work. Coronavirus screen: At this time, the client does not indicate any symptoms associated with coronavirus-19. Ebola Screen: Patient denies travel to an Ebola-affected area in the 21 days before illness onset. 11:30 Method Of Arrival: Ambulatory tw2 11:35 Initial Sepsis Screen: Does the patient meet any 2 criteria? HR > 90 bpm. No. Patient's tw2 initial sepsis screen is negative. Does the patient have a suspected source of infection? No. Patient's initial sepsis screen is negative. Risk Assessment: Do you want to hurt yourself or someone else? Patient reports no desire to harm self or others. Onset of symptoms was January 27, 2021. 11:35 Acuity: ALLI 3 tw2 Triage Assessment: 11:35 General: Appears in no apparent distress. obese, Behavior is calm, cooperative, tw2 appropriate for age. Pain: Complains of pain in mid-sternal area. Cardiovascular: Reports chest pain. 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 - Social history:: Smoking status: Patient reports the use of cigarette tobacco products, smokes one pack cigarettes per day. Screenin:48 Abuse screen: Denies threats or abuse. Nutritional screening: No deficits noted. tw2 Tuberculosis screening: No symptoms or risk factors identified. Fall Risk None identified. Assessment: 12:17 Reassessment: Patient is alert, oriented x 3, equal unlabored respirations, skin es2 warm/dry/pink. General: Appears obese, well developed, well nourished, Behavior is calm, cooperative, appropriate for age. 12:17 Pain: Complains of pain in chest Pain currently is 9 out of 10 on a pain scale. es2 12:18 Pain: Pain began 1 day ago. Neuro: Level of Consciousness is awake, alert, obeys es2 commands, Oriented to person, place, time, situation, Appropriate for age Gait is steady, Speech is normal. Cardiovascular: Reports chest pain. Respiratory: Airway is patent Respiratory effort is even, Respiratory pattern is regular. GI: No signs and/or symptoms were reported involving the gastrointestinal system. : No signs and/or symptoms were reported regarding the genitourinary system. EENT: No signs and/or symptoms were reported regarding the EENT system. Derm: No signs and/or symptoms reported regarding the dermatologic system. Musculoskeletal: No signs and/or symptoms reported regarding the musculoskeletal system. Vital Signs: 11:35 BP 149 / 82; Pulse 92; Resp 17; Temp 98.5(TE); Pulse Ox 98% on R/A; Weight 90.72 kg tw2 (R); Height 5 ft. 2 in. (157.48 cm); Pain 10/10; 12:19 BP 128 / 80; Pulse 84; Resp 17; Pulse Ox 98% on R/A; es2 14:02 BP 110 / 71; Pulse 71; Resp 18; Pulse Ox 99% on R/A; es2 15:06 BP 109 / 63; Pulse 64; Resp 13; Pulse Ox 96% on R/A; es2 15:22 BP 103 / 62; Pulse 63; Resp 1; Pulse Ox 97% on R/A; es2 11:35 Body Mass Index 36.58 (90.72 kg, 157.48 cm) tw2 ED Course: 11:20 Patient arrived in ED. ds1 11:33 Arm band placed on. tw2 11:36 Triage completed. tw2 11:36 Placed in gown. Bed in low position. Call light in reach. Adult w/ patient. tw2 11:36 Patient maintains SpO2 saturation greater than 95% on room air. tw2 11:37 Nahomy Agarwal RN is Primary Nurse. es2 11:58 Perry Pires MD is Attending Physician. kdr 12:16 Acetaminophen Sent. es2 12:16 ETOH Level Sent. es2 12:16 Ptt, Activated Sent. es2 12:16 Salicylate Sent. es2 12:16 Urine Drug Screen Sent. es2 12:16 Magnesium Sent. es2 12:16 LFT's Sent. es2 12:16 CBC with Diff Sent. es2 12:16 Basic Metabolic Panel Sent. es2 12:16 Troponin (emerg Dept Use Only) Sent. es2 12:16 NT PRO-BNP Sent. es2 12:17 monitor car operator on. Pulse ox on. NIBP on. es2 12:17 PT-INR Sent. es2 12:17 Urine --Ancillary (enter results) Sent. es2 12:17 Inserted saline lock: 20 gauge in right antecubital area, using aseptic technique. es2 Blood collected. 12:17 No provider procedures requiring assistance completed. es2 12:20 XRAY Chest (1 view) In Process Unspecified. EDMS 13:50 Bryce Nicholas DO is Hospitalizing Provider. kdr Administered Medications: 13:13 Drug: morphine 4 mg {Note: Rass 0.} Route: IVP; Site: right antecubital; es2 13:14 Follow up: Response: No adverse reaction es2 13:13 Drug: Zofran (Ondansetron) 4 mg Route: IVP; Site: right antecubital; es2 13:13 Follow up: Response: No adverse reaction es2 13:13 Drug: Aspirin Chewable Tablet 324 mg Route: PO; es2 13:13 Follow up: Response: No adverse reaction es2 13:13 Drug: Pepcid (famotidine) 20 mg Route: IVP; Site: right antecubital; es2 13:13 Follow up: Response: No adverse reaction es2 Outcome: 13:51 Decision to Hospitalize by Provider. kdr 18:07 Patient left the ED. es2 Signatures: Dispatcher [employer] EDGA Perry Pires MD MD [facility] Heidi Eddy ds1 Kelsey Sanders RN RN tw2 Nahomy Agarwal RN RN es2 Corrections: (The following items were deleted from the chart) 11:33 11:30 Chief complaint: Patient states: i feel like i am having a heart attack. my chest tw2 hurts really bad right in the center. started 3 days ago. i was asleep and my left arm has been going numb. its like a really sharp then it eases up \\T\\ then it never goes away. tw2
[2021-01-27] MEDS ORDERED: LABETALOL 20 MG/4ML SYRINGE IV PRN (17:16)
[2021-01-27 18:27] VITALS: BMI 36.6
[2021-01-27] MEDS ORDERED: HYDROCODONE/APAP 5/325 MG TAB PO PRN (18:41)
[2021-01-27] MEDS ORDERED: ACETAMINOPHEN 500 MG TAB PO PRN (18:42)
--- NOTE | 2021-01-27 18:51 | P.HP ---
Certification for Inpatient Patient admitted to: Inpatient With expected LOS: >2 Midnights Patient will require the following post-hospital care: None Practitioner: I am a practitioner with admitting privileges, knowledge of patient current condition, hospital course, and medical plan of care. Services: Services provided to patient in accordance with Admission requirements found in Title 42 Section 412.3 of the Code of Federal Regulations Patient History Date of Service: 01/27/21 Reason for admission: Chest pain History of Present Illness: Patient is a 50-year-old female with a past medical history significant for GERD, anxiety disorder, DM 2, MARCO ANTONIO who presents with complaint of chest pain that has been ongoing for the past 3 days. Patient reported that she initially started having left arm pain with numbness 1 week ago and 3 days ago when she woke up she started having chest pain. She reported that chest pain is located in the substernal chest area radiates to her left arm. Patient rated pain as 10/10 and described pain as sharp/squeezing in quality. Patient reports associated signs and symptoms of diaphoresis, shortness of breath, dyspnea, nausea, weakness, poor appetite, dizziness and fatigue. Patient reported that 3 days ago she went to [facility] and was discharged after a basic work-up. Patient was instructed to follow-up with her corporate director of pharmacy. Patient continued having chest pain that remained constant. Patient denies any other signs and symptoms. Symptoms are aggravated by exertion and relieved by nothing. Patient decided to present to the hospital due to worsening symptoms. Allergies esomeprazole mag [From Nexium] Allergy (Unverified 08/17/14 19:20) Unknown hydromorphone HCl [From Dilaudid] Allergy (Unverified 08/17/14 19:20) Unknown Home Medications: Atorvastatin Calcium [Lipitor*] 1 tab DAILY 01/27/21 Cholecalciferol (Vitamin D3) [Vitamin D 5,000 IU Cap*] 1 tab EVERY 7TH DAY 01/27/21 Escitalopram Oxalate [Lexapro] 1 tab DAILY 01/27/21 Omeprazole Magnesium [Prilosec Otc] 1 tab DAILY 01/27/21 - Past Medical/Surgical History Diabetic: Yes -: gestational diabetic -: Anxiety -: GERD -: MARCO ANTONIO -: Hysterectomy - Family History Mother -: Heart disease ([place]), Hypertension, Diabetes Father -: Hypertension, Diabetes Sister -: Heart disease ([place]), Hypertension, Diabetes - Social History Smoking Status: Current every day smoker Smoking therapy provided: Yes Patient receptive to therapy: Yes Alcohol use: Yes CD- Drugs: No Caffeine use: Yes Place of Residence: Home Review of Systems General: Weakness, Other (Fatigue), As per HPI Eyes: Unremarkable ENT: Unremarkable Respiratory: Shortness of Breath, SOB with Excertion Cardiovascular: Chest Pain Gastrointestinal: Nausea Genitourinary: Unremarkable Musculoskeletal: Arm Pain Integumentary: Unremarkable Neurological: Unremarkable Lymphatics: Unremarkable Physical Examination - Vital Signs Temperature: 97.5 F Blood Pressure: 140/80 Pulse: 77 Respirations: 16 Pulse Ox (%): 96 - Physical Exam General: Alert, In no apparent distress, Oriented x3 HEENT: Atraumatic, PERRLA, Mucous membr. moist/pink, EOMI, Sclerae nonicteric Neck: Supple, 2+ carotid pulse no bruit, No LAD, Without JVD or thyroid abnormality Respiratory: Clear to auscultation bilaterally, Normal air movement Cardiovascular: Regular rate/rhythm, Normal S1 S2 Capillary refill: <2 Seconds Gastrointestinal: Normal bowel sounds, No tenderness Musculoskeletal: No clubbing, No tenderness Integumentary: No rashes Neurological: Normal gait, Normal speech, Normal tone, Normal affect Lymphatics: No axilla or inguinal lymphadenopathy External genitalia: Deferred Rectal: Deferred - Studies Laboratory Data (last 24 hrs) 01/27/21 12:12: PT 11.0, INR 0.96, APTT 33.2 01/27/21 12:12: WBC 8.80, Hgb 14.3, Hct 42.9, Plt Count 341 01/27/21 12:12: Sodium 141, Potassium 3.9, BUN 10, Creatinine 0.86, Glucose 117 H, Magnesium 2.2, Total Bilirubin 0.3, AST 27, ALT 49, Alkaline Phosphatase 149 H Assessment and Plan - Plan --Chest pain of unclear etiology. Cardiology consulted. Echocardiogram pending. Telemetry to monitor for any significant arrhythmia. Will trend troponin--so far negative. Further management per corporate director of pharmacy. --Anxiety disorder. Ativan as needed. --DM2. BS monitoring with sliding scale insulin. --MARCO ANTONIO. CPAP every hour sleep. --GERD. Continue Protonix. --CKD 2. Stable. We will continue to monitor renal functions. --HLD. Continue statin. --Nicotine dependence. Patient placed on nicotine patch and counseled on tobacco cessation. --DVT prophylaxis with Lovenox subQ I have had discussion about advanced directives with the patient during this hospital admission. Addressed code status and goals of care. Spent more than 30 minutes. Case discussed withpatient and nurse. The following document was completed using voice recognition software. This can produce education coordinator errors that can at times significantly distort words and phrases. Please interpret any aspect of the note that is nonsensical in light of this fact. Discharge Plan: Home Plan to discharge in: 48 Hours - Advance Directives Does patient have a Living Will: No Does patient have a Durable POA for Healthcare: No - Code Status/Comfort Care Code Status Assessed: Yes Code Status: Full Code Physician Review: Patient Assessed, Agree with Above Assessment and Plan Critical Care: No
[2021-01-27] MEDS: FENTANYL CITR 100 MCG/2 ML IV PRN (20:27)
[2021-01-27] MEDS: INSULIN -REGULAR HUMAN 50 UNIT/0.5 ML ML SQ SCH (20:28)
[2021-01-27] MEDS: ONDANSETRON 4 MG/2 ML VIAL IV PRN (20:30)
[2021-01-27 22:04] LABS: Urine Appearance CLOUDY (Clear); Urine Bilirubin NEGATIVE (Negative); Urine Blood 1+ (Negative); Urine Color YELLOW (Yellow); Urine Glucose NEGATIVE (Negative); Urine Protein NEGATIVE (Negative); Urine Specific Gravity 1.015 (1.005-1.030); Urine Urobilinogen 0.2 mg/dL (0.2-1.0); Urine pH 5.5 (5.0-7.0)
[2021-01-27 22:25] LABS: Urine Microscopic Reflex ORDER UMIC
[2021-01-27 22:39] LABS: Urine Bacteria >50 /HPF (<20); Urine RBC <5 /HPF (NONE SEEN)
[2021-01-27] MEDS: LORazepam 2 MG/ML VIAL IV PRN (22:40)
[2021-01-28] MEDS: METOPROLOL TAR 25 MG TAB PO SCH ×2 (05:18→17:01)
[2021-01-28] MEDS: PANTOPRAZOLE 40MG TABLET PO SCH (05:33)
[2021-01-28 05:44] LABS: Absolute Lymphocytes (CBC) 3.1 K/uL (0.7-4.9); Basophils % 0.8 % (0-1.3); Hematocrit 38.5 % (36.0-45.0); Lymphocytes % 38.3 % (15.3-44.8); MPV 8.3 fL (7.6-11.3); RBC Red Blood Cell Count 4.37 M/uL (3.86-4.86)
[2021-01-28 06:02] LABS: Potassium 4.1 mmol/L (3.5-5.1)
[2021-01-28] MEDS: INSULIN -REGULAR HUMAN 50 UNIT/0.5 ML ML SQ SCH ×4 (07:30→20:29)
[2021-01-28] MEDS: FENTANYL CITR 100 MCG/2 ML IV PRN (08:31)
[2021-01-28] MEDS: NICOTINE 21 MG/PAT TD SCH ×2 (08:32→17:14)
[2021-01-28] MEDS: MORPHINE 2 MG/ML SYR IV PRN ×2 (13:12→20:29)
--- NOTE | 2021-01-28 15:03 | ECHO ---
HEIGHT: 5 ft 2 in WEIGHT: 200 lb 0.054 oz DATE OF STUDY: 01/28/[address]: Livan Thakkar 2-DIMENSIONAL: YES M.MODE: YES DOPPLER: YES COLOR FLOW: YES TDS: NO PORTABLE: NO DEFINITY: NO BUBBLE STUDY: NO DIAGNOSIS: CHEST PAIN CARDIAC HISTORY: CATHERIZATION: NO SURGERY: NO PROSTHETIC VALVE: NO PACEMAKER: NO MEASUREMENTS (cm) DIASTOLIC (NORMALS) SYSTOLIC (NORMALS) IVSd 1.0 (0.6-1.2) LA Diam 2.5 (1.9-4.0) LVEF 65% LVIDd 4.2 (3.5-5.7) LVIDs 2.7 (2.0-3.5) %FS 35% LVPWd 1.0 (0.6-1.2) Ao Diam 2.5 (2.0-3.7) 2 DIMENSIONAL ASSESSMENT: RIGHT ATRIUM: NORMAL LEFT ATRIUM: NORMAL RIGHT VENTRICLE: NORMAL LEFT VENTRICLE: NORMAL TRICUSPID VALVE: NORMAL MITRAL VALVE: NORMAL PULMONIC VALVE: NORMAL AORTIC VALVE: NORMAL PERICARDIAL EFFUSION: NONE AORTIC ROOT: NORMAL LEFT VENTRICULAR WALL MOTION: NORMAL DOPPLER/COLOR FLOW: NORMAL COMMENTS: NORMAL LEFT VENTRICULAR EJECTION FRACTION 60-65%. NORMAL WALL MOTION. TECHNOLOGIST: Nevaeh KESSLER
--- NOTE | 2021-01-28 15:51 | P.PN ---
Date of Service: 01/28/21 Subjective: Continued with chest pain overnight, pain medication makes the pain more tolerable, pain is left-sided chest, substernal Nothing in particular aggravates, nothing beyond pain medication helps to alleviate the pain Patient is very anxious and concerned about this pain. Multiple family members with significant cardiac history ROS: 10 point review of systems otherwise negative Physical exam GEN: Alert, oriented, NAD, obese HEENT: Normal conjunctiva, sclera anicteric CV: Regular rate and rhythm, no edema Pulm: Nonlabored respiration, clear to auscultation bilaterally ABD: Soft, nontender, nondistended MSK: No joint tenderness Integumentary: No rashes Neuro: Normal speech, normal affect Problem list Chest pain unknown etiology Generalized anxiety Diabetes mellitus type 2, [id number] MARCO ANTONIO GERD -Troponins negative x3, patient with significant family history/risk factors -Cardiology consulted, patient is n.p.o. this morning, for possible stress test, pending cardiology evaluation -EKG without acute ischemic changes -Continue other home medications as appropriate -Continue to monitor on telemetry -Echocardiogram to be done today Dispo: dc home in next 24 hours, pending cardiology eval / improvement Time Spent Managing Pts Care (In Minutes): 35
[2021-01-28] MEDS: ESCITALOPRAM 20 MG TAB PO SCH (17:01)
[2021-01-28] MEDS: ATORVASTATIN 10 MG TAB PO SCH (17:02)
[2021-01-28] MEDS: ENOXAPARIN 40 MG/0.4 ML SQ SCH (17:02)
[2021-01-28] MEDS: ASPIRIN 81 MG CHEWABLE TABLET PO SCH (17:02)
[2021-01-28] MEDS: DOCUSATE NA 100 MG CAP PO SCH (20:28)
--- NOTE | 2021-01-28 20:44 | CON ---
Date of Consultation: 01/28/2021 Reason For Consultation: Chest pain. History Of Present Illness: A 50-year-old female with history of diabetes, obstructive sleep apnea, hypertension, dyslipidemia, presented with chest pain on and off, squeezing-type, radiating to left a rm, not related to exertion. It has been going on for the past 24 hours. Denies having any diaphore sis, nausea, or vomiting. Past Medical History: As outlined above in the HPI. Medications: Refer to reconciliation sheet for detailed list. Allergies: HYDROMORPHONE AND ESOMEPRAZOLE. Family History: Heart disease runs in both sides of family. Social History: One pack per day smoker. Does not drink or use any drugs. Review of Systems: All systems reviewed and they were negative except for as mentioned in the HPI. Physical Examination: Vital Signs: Reviewed. Head and Neck: Pupils are equal and reactive to light. Intact eye movements. No JVD. No cervical lymphadenopathy. Neck: Supple. Thyroid is not enlarged. Lungs: Clear to auscultation bilaterally. No rhonchi, rales, or crackles. No accessory muscle use. Heart: Regular rate and rhythm. No extra sounds. Abdomen: Soft, nontender. Bowel sounds positive. No organomegaly. No hernia or masses. No rigidi ty or rebound. Extremities: No edema, clubbing, or cyanosis intact pulses. Skin: No rashes. Neurologic: Alert and oriented x3. Investigations: Three sets of cardiac enzymes are negative. EKG, no specific abnormalities. Echo w as normal. Assessment And Recommendations: Chest pain, on and off, and not resolving. Negative troponin and no rmal wall motion by echo. However, she has risk factors given that she still has chest pain. I pauline mmend that we proceed with exercise nuclear stress test to further evaluate for ischemia. Further re commendation accordingly. SR/MODL Voice ID: [id number] Report ID: [id number]
[2021-01-28] MEDS: LORazepam 2 MG/ML VIAL IV PRN (22:18)
[2021-01-29] MEDS: MORPHINE 2 MG/ML SYR IV PRN ×3 (02:24→11:37)
[2021-01-29] MEDS: METOPROLOL TAR 25 MG TAB PO SCH (05:17)
[2021-01-29 05:57] LABS: Hematocrit 38.3 % (36.0-45.0); MPV 8.1 fL (7.6-11.3); RBC Red Blood Cell Count 4.35 M/uL (3.86-4.86)
[2021-01-29 06:19] LABS: Potassium 4.1 mmol/L (3.5-5.1)
[2021-01-29] MEDS: PANTOPRAZOLE 40MG TABLET PO SCH (06:28)
[2021-01-29] MEDS: INSULIN -REGULAR HUMAN 50 UNIT/0.5 ML ML SQ SCH ×2 (07:30→11:30)
[2021-01-29] MEDS: ONDANSETRON 4 MG/2 ML VIAL IV PRN ×2 (08:54→11:37)
[2021-01-29] MEDS: ENOXAPARIN 40 MG/0.4 ML SQ SCH (08:54)
[2021-01-29] MEDS: ESCITALOPRAM 20 MG TAB PO SCH (08:55)
[2021-01-29] MEDS: DOCUSATE NA 100 MG CAP PO SCH (08:55)
[2021-01-29] MEDS: ASPIRIN 81 MG CHEWABLE TABLET PO SCH (08:55)
[2021-01-29] MEDS: NICOTINE 21 MG/PAT TD SCH (08:55)
[2021-01-29] MEDS: ATORVASTATIN 10 MG TAB PO SCH (08:56)
[2021-01-29 12:47] VITALS: O2SAT 93
[2021-01-29 12:49] VITALS: BP 119/62; TEMP 97.6
--- NOTE | 2021-01-29 13:26 | RAD REPORT ---
EXAM DESCRIPTION: NM - Rest Stress Cardiac Imaging - 01/29/2021 12:52 pm CLINICAL HISTORY: Chest pain. COMPARISON: None. TECHNIQUE: The patient was administered 10.4 mCi of Tc 99m Sestamibi prior to resting SPECT imaging of the heart. The patient was then administered 30.7 mCi of Tc 99m Sestamibi following exercise or ph armacologic stress. Multiplanar SPECT images were reviewed. FINDINGS: There is uniformity of radiotracer uptake involving the entire left ventricular myocardiu m on rest and stress images. The left ventricular ejection fraction equals 70% IMPRESSION: Negative for a myocardial perfusion defect
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
--- NOTE | 2021-01-30 11:48 | EKG ---
Test Date: 2021-01-28 Test Time: 13:23:37 [employer]: GARY MEASUREMENT RESULTS: Intervals: Rate: 68 CT: 142 QRSD: 84 QT: 390 QTc: 414 [place]: P: -1 CT: 142 QRS: -10 T: 23 INTERPRETIVE STATEMENTS: Normal sinus rhythm Voltage criteria for left ventricular hypertrophy Abnormal ECG Compared to ECG 01/27/2021 19:40:54 No significant changes Electronically Signed On 01-30-21 11:45:01 CDT by Fransisco Loaiza
--- NOTE | 2021-02-01 08:28 | TREADMILL ---
70% H.R.: 120 85% H.R.: 145 90% H.R.: 154 100% H.R.: 171 DX: CHEST PAIN Date of Study: 01/29/2021 Ht: 5' 2 " Wt: 200 lb 0.054 oz Consulting Physician: BRIDGET MEDICATIONS: ASPIRIN, LIPITOR, LOVENOX, LEXAPRO, NOVOLIN -R, LOPRESSOR HISTORY: 49 YEAR OLD FEMALE WITH COMPLAINTS OF CHEST PAIN. HISTORY OF DIABETES MELLITUS, HIGH CHOLESTEROL AND HYPERTENSION. PHYSICIAL EXAMINATION: RESTING B.P.: 114/85 RESTING H.R.: 69 RESTING EKG: NORMAL PROTOCOL: CLOVER CARDIOLITE EXERCISE TIME: 6:52 MAXIMUM HEART RATE: 145 % OF PREDICTED B.P. AT PEAK STRESS: 161/70 H.R. AT 1 MINUTE POST EXERCISE: 135 IMPRESSION: COLVER CARDIOLITE STRESS TEST PERFORMED. COMPLAINTS OF CHEST PAIN AND SHORTNESS OF BREATH. NO SUPRAVENTRICULAR OR VENTRICULAR TACHYCARDIA. NO ARRHYTMIAS NOTED.
== END 2021-01-29 16:56 | disposition home or self-care (01) | DRG 313 ==
LOC: ER 11:19 → ERHOLD 17:00 → 4TH 18:03 → 2ND 21:53
PROVIDERS: ADMIT Hospitalist; ATTEND Hospitalist
PROC: 5A09457 Assistance with Respiratory Ventilation, 24-96 Consecutive Hours, Continuous Positive Airway Pressure (ICD-10-PCS; principal; 2021-01-27)
DX: R07.9 Chest pain, unspecified (principal); I20.0 Unstable angina; E11.9 Type 2 diabetes mellitus without complications; F17.210 Nicotine dependence, cigarettes, uncomplicated; N18.2 Chronic kidney disease, stage 2 (mild); E78.5 Hyperlipidemia, unspecified; F41.9 Anxiety disorder, unspecified; G47.33 Obstructive sleep apnea (adult) (pediatric); K21.9 Gastro-esophageal reflux disease without esophagitis; Z90.710 Acquired absence of both cervix and uterus; Z88.8 Allergy status to other drugs, medicaments and biological substances; Z90.49 Acquired absence of other specified parts of digestive tract; Z79.899 Other long term (current) drug therapy; Z20.822 Contact with and (suspected) exposure to COVID-19
CPT/HCPCS: 36415; 70450; 71045; 78452; 80048; 80076; 80307; 80320; 80329; 81003; 81015; 81025; 82947; 83735; 83880; 84100; 84484; 85025; 85027; 85379; 85610; 85730; 87086; 87088; 93005; 93017; 93306; 94660; 96374; 96375; 99285; A9500; J1650; J2270; J2405; J3010; U0003

== ENCOUNTER 2021-03-24 15:54 | Emergency (ER) | payer OTHER ==
--- OUTSIDE RECORDS SUMMARY | 2021-03-24 15:57 | XMS REPORT | Continuity of Care Document ---
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 [id number] Brad Garza MD Ph:[phone] LIPOPROTEIN VLDL (test 22 mg/dL 5-40 code = VLDL) CBC W/AUTO [id number] 05:12:00 Test Item Value Reference Range Interpretation Comments WHITE BLOOD CELL (test code = 8.6 K/mm3 4.1-12.1 N WBC) RED BLOOD CELL (test code = RBC) 4.37 M/mm3 3.8-5.5 N HEMOGLOBIN (test code = HGB) 13.0 G/DL 10.6-15.8 N HEMATOCRIT (test code = HCT) 40.1 % 31.8-47.4 N MEAN CELL VOLUME (test code = 91.8 fL 80.1-101.1 N MCV) MEAN CELL HGB (test code = MCH) 29.7 pg 25.3-35.3 N MEAN CELL HGB CONCETRATION (test 32.4 G/DL 32.7-35.1 L code = MCHC) RED CELL DISTRIBUTION WIDTH 13.2 % 12.2-16.4 N (test code = RDW) RED CELL DISTRIBUTION WIDTH 45.1 fL 36.4-46.3 N (test code = RDW-SD) PLATELET COUNT (test code = PLT) 324 K/mm3 155-337 N MEAN PLATELET VOLUME (test code 9.8 fL 6.8-11.2 N = MPV) GRANULOCYTE % (test code = GR%) 51.9 % 37.8-82.6 N IMMATURE GRANULOCYTE % (test 0.3 % 0.0-2.0 N code = IG%) LYMPHOCYTE % (test code = LY%) 36.0 % 14.1-45.4 N MONOCYTE % (test code = MO%) 9.9 % 2.5-11.7 N EOSINOPHIL % (test code = EO%) 1.4 % 0.0-6.2 N BASOPHIL % (test code = BA%) 0.5 % 0.0-2.1 N NUCLEATED RBC % (test code = 0.0 /100WBC% 0.0-1.0 N NRBC%) GRANULOCYTE # (test code = GR#) 4.47 k/mm3 2.0-13.7 N IMMATURE GRANULOCYTE # (test 0.03 K/mm3 0.00-0.03 N code = IG#) LYMPHOCYTE # (test code = LY#) 3.10 K/mm3 0.6-3.8 N MONOCYTE # (test code = MO#) 0.85 K/mm3 0.11-0.59 H EOSINOPHIL # (test code = EO#) 0.12 K/mm3 0.0-0.4 N BASOPHIL # (test code = BA#) 0.04 K/mm3 0.0-0.1 N NUCLEATED RBC # (test code = 0.00 K/mm3 0.0-0.05 N NRBC#) PT AND [id number] 05:07:00 Test Item Value Reference Interpretation Comments Range PT PATIENT (test 10.5 SECONDS 9.4-12.5 N code = PTP) INTERNATIONAL 0.91 INR 0.88-1.13 N NORMAL RATIO (test Unit --------- code = INR) ---------Therap eutic range for INR i s dependent upon the situation.2.0-3 .0 Prophylaxis / v enous thromboembolism , Treatment of DVT, Acute myocardia l infarction stro ke prevention, Systemic emboli sm prevention in fibrillation3.0 -4.5 AMI recurrence prev ention, Systemic emboli sm prevention in p rosthetic heart 3.0-5.4 A [place] mortality reduc tion THROMBOPLASTIN TIME 33.3 SECONDS 24-37.7 N THERAPEU TIC RANGE FOR PARTIAL (test code UNFRACTIO NATED HEPARIN = = PTT) 50.5-83.6 SEC T his test is not recommen ded to monitor low molecularweight heparin or danaparoid. Order LMWH test COLLECTION THROUGH LINES THAT HAVE BEEN PREVIOUSLY FLUS HEDWITH HEPARIN SHOULD BE AVOIDED DUE TO POSSIBLE HEPARINCONTAMIN ATION [id number] 01:09:00 Test Item Value Reference Range Interpretation Comments TROPONIN-I < 0.015 NG/ML 0.000-0.045 N INTERPRET WITH CAUTION, THIS (test code = VALUE EXCEEDS T HE LOWER TROPI) LIMITOF LINEARI TY VERIFICATION ES TABLISHED BY THE LABORATORY. An elevated troponin value alone is not sufficient todi agnose a myocardial infa rction. Rather, the patient'sclinic al presentation (h istory, physical exam) and ECGshould be used in conj unction with troponin in the diagnostic evaluation of s uspected myocardial infa rction. Aserial samplin g protocol is recommended to facilitate theidentificati on of temporal change s in troponin levelscharacter istic of [place]. [id number] 21:49:00 Test Item Value Reference Range Interpretation Comments TROPONIN-I < 0.015 NG/ML 0.000-0.045 N INTERPRET WITH CAUTION, THIS (test code = VALUE EXCEEDS T HE LOWER TROPI) LIMITOF LINEARI TY VERIFICATION ES TABLISHED BY THE LABORATORY. An elevated troponin value alone is not sufficient todi agnose a myocardial infa rction. Rather, the patient'sclinic al presentation (h istory, physical exam) and ECGshould be used in conj unction with troponin in the diagnostic evaluation of s uspected myocardial infa rction. Aserial samplin g protocol is recommended to facilitate theidentificati on of temporal change s in troponin levelscharacter istic of [place]. [id number] 18:41:00 Test Item Value Reference Range Interpretation Comments TROPONIN-I < 0.015 NG/ML 0.000-0.045 N INTERPRET WITH CAUTION, THIS (test code = VALUE EXCEEDS T HE LOWER TROPI) LIMITOF LINEARI TY VERIFICATION ES TABLISHED BY THE LABORATORY. An elevated troponin value alone is not sufficient todi agnose a myocardial infa rction. Rather, the patient'sclinic al presentation (h istory, physical exam) and ECGshould be used in conj unction with troponin in the diagnostic evaluation of s uspected myocardial infa rction. Aserial samplin g protocol is recommended to facilitate theidentificati on of temporal change s in troponin levelscharacter istic of [place]. [id number] 05:05:00 Test Item Value Reference Range Interpretation Comments TROPONIN-I < 0.015 NG/ML 0.000-0.045 INTERPRET WITH CAUTION, THIS (test code = VALUE EXCEEDS T HE LOWER TROPI) LIMITOF LINEARI TY VERIFICATION ES TABLISHED BY THE LABORATORY. An elevated troponin value alone is not sufficient todi agnose a myocardial infa rction. Rather, the patient'sclinic al presentation (h istory, physical exam) and ECGshould be used in conj unction with troponin in the diagnostic evaluation of s uspected myocardial infa rction. Aserial samplin g protocol is recommended to facilitate theidentificati on of temporal change s in troponin levelscharacter istic of [place]. [id number] 02:44:00 Test Item Value Reference Range Interpretation Comments D-DIMER (test 270 FEUng/mL 0-500 N THE CUT-OFF VA LUE FOR code = DDIMER) EXCLUSION OF VTE = 500 FEU ng/mLNOTE: This method must be used with additional test s in theevaluation o f VTE and should not be u sed to exclude VTE wit hpretest probability kaitlin ne. BASIC METABOLIC [id number] 01:44:00 Test Item Value Reference Range Interpretation Comments SODIUM (test code = 138.0 mmol/L 133-144 N NA) POTASSIUM (test 4.3 mmol/L 3.5-5.1 N code = K) CHLORIDE (test code 106 mmol/L 95-105 H = CL) CARBON DIOXIDE 30 mmol/L 21-32 N (test code = CO2) ANION GAP (test 2.0 GAP calc 4.0-15.0 L code = GAP) GLUCOSE (test code 98 MG/DL 70-110 N = GLU) BLOOD UREA NITROGEN 15 MG/DL 7-18 N (test code = BUN) CREATININE (test 0.78 MG/DL 0.55-1.30 N Results may be code = CREAT) depressed if p atient is takingN-Acetylc ystei ne (NAC) and Metamizole (Dipyrone). CALCIUM (test code 9.1 MG/DL 8.5-10.1 N = CA) INDEX HEMOLYSIS 3 SMALL 25-50 See_Comment [Automated message] (test code = MG Index/DL The system oneDrum h HEMINDEX) generated this result transmit navin reference range : 1 NORMAL. The reference range was not used to interpret this result as normal/abnormal . INDEX ICTERIC (test 1 NORMAL <2 MG See_Comment [Auto mated message] code = ICTINDEX) Index/DL The system which generated this result transmit navin reference range : 1 NORMAL. The reference range was not used to interpret this result as normal/abnormal . INDEX LIPEMIA (test 1 NORMAL <50 MG See_Comment [Aut omated message] code = LIPINDEX) Index/DL The system which generated this result transmit navin reference range : 1 NORMAL. The reference range was not used to interpret this result as normal/abnormal . [id number] 01:44:00 Test Item Value Reference Range Interpretation Comments TROPONIN-I < 0.020 NG/ML 0.000-0.045 N INTERPRET WITH CAUTION, THIS (test code = VALUE EXCEEDS T HE LOWER TROPI) LIMITOF LINEARI TY VERIFICATION ES TABLISHED BY THE LABORATORY. An elevated troponin value alone is not sufficient todi agnose a myocardial infa rction. Rather, the patient'sclinic al presentation (h istory, physical exam) and ECGshould be used in conj unction with troponin in the diagnostic evaluation of s uspected myocardial infa rction. Aserial samplin g protocol is recommended to facilitate theidentificati on of temporal change s in troponin levelscharacter istic of [place]. CBC W/O [id number] 01:03:00 Test Item Value Reference Range Interpretation Comments WHITE BLOOD CELL (test code = WBC) 11.4 K/mm3 4.1-12.1 N RED BLOOD CELL (test code = RBC) 4.47 M/mm3 3.8-5.5 N HEMOGLOBIN (test code = HGB) 13.5 G/DL 10.6-15.8 N HEMATOCRIT (test code = HCT) 41.5 % 31.8-47.4 N MEAN CELL VOLUME (test code = MCV) 92.8 fL 80.1-101.1 N MEAN CELL HGB (test code = MCH) 30.2 pg 25.3-35.3 N MEAN CELL HGB CONCETRATION (test 32.5 G/DL 32.7-35.1 L code = MCHC) RED CELL DISTRIBUTION WIDTH (test 13.3 % 12.2-16.4 N code = RDW) PLATELET COUNT (test code = PLT) 354 K/mm3 155-337 H MEAN PLATELET VOLUME (test code = 9.9 fL 6.8-11.2 N MPV) - XR CHEST 1 [id number] 22:11:00 [facility] DONNIE DINH : 1970 Sex: F FAX: Mary Becker NP [phone] [place]: E St: PRE Patient Name: DONNIE DINH Unit No: [id number] EXAMS: CPT CODE: [id number] XR CHEST 1 V 01253 - XR CHEST 1 V, 03/04/2021 9:46 PM Reason For Examination: Chest pain Comparison: None Location: R16 Findings LUNGS: Subtle small opacity seen at the right lung base may reflect confluence of shadow but should be followed up on outpatient basis to resolution PLEURA: No pleural effusions CARDIOMEDIASTINAL SILHOUETTE Unremarkable IMPRESSION: Exam findings limited secondary to patient habitus and overlying soft tissues Subtle small opacity seen at the right lung base may reflect confluence of shadow but should be followed up on outpatient basis to resolution at 2211 Reported and signed by: Mechelle Starr M.D. CC: Mary EbnerNP Dictated Date/Time: 03/04/2021 (2210)Technologist: Laura Segovia Transcribed Date/Time: 03/04/2021 (2210) By: [email or web address] Orig Print D/T: S: 03/04/2021 (2213) EMMY Berman NAME: DONNIE DINH [address] [place] [address] PHYS: Mary Bryan NP, [place] [address] : 1970 AGE: 50 SEX: F LOC: B.ERS PHONE #: [phone] EXAM DATE: 03/04/2021 STATUS: PRE ER FAX #: [phone] RAD NO: DC Dt: PAGE 1 Signed ReportTROPONIN [id number] 07:45:37 Test Item Value Reference Interpretation Comments Range TROPONIN I (test 0.002 ng/mL See_Comment [Automated code = 0534449910) message] The system which generated this result transmitted reference range : <=0.034. The reference range was not used to interpret this result as normal/abnormal . HECTOR (test code = Reference (Normal) HECTOR) Range (defined by the 99th percentile reference limit): <= 0.034 ng/mL Note: Cardiac troponin begins to rise 3-4 hours after the onset of ischemia. Repeat in 4-6 hours if the sample was drawn within 3-4 hours of the onset of the symptom and found normal. Diagnosis of myocardial injury is made with acute changes in cTn concentrations with at least one serial sample above the 99th percentile upper reference limit (URL), taken together with the patient's clinical presentation. Biotin has been reported to cause a negative bias, interpret results relative to patient's use of biotin. Lab Interpretation Normal (test code = 32798-2) [facility] [id number] 05:42:09 Test Item Value Reference Interpretation Comments Range TROPONIN I (test 0.001 ng/mL See_Comment [Automated code = 8030090970) message] The system which generated this result transmitted reference range : <=0.034. The reference range was not used to interpret this result as normal/abnormal . HECTOR (test code = Reference (Normal) HECTOR) Range (defined by the 99th percentile reference limit): <= 0.034 ng/mL Note: Cardiac troponin begins to rise 3-4 hours after the onset of ischemia. Repeat in 4-6 hours if the sample was drawn within 3-4 hours of the onset of the symptom and found normal. Diagnosis of myocardial injury is made with acute changes in cTn concentrations with at least one serial sample above the 99th percentile upper reference limit (URL), taken together with the patient's clinical presentation. Biotin has been reported to cause a negative bias, interpret results relative to patient's use of biotin. Lab Interpretation Normal (test code = 92474-5) [facility]. METABOLIC PANEL ([id number])2021-02-20 05:30:28 Test Item Value Reference Range Interpretation Comments NA (test code = 137 mmol/L 135-145 7134040668) K (test code = 4.8 mmol/L 3.5-5.0 9154033132) CL (test code = 103 mmol/L 98-108 0289636667) CO2 TOTAL (test code = 29 mmol/L 23-31 5947874491) AGAP (test code = 2-16 5365227224) BUN (test code = 18 mg/dL 7-23 6999219747) GLUCOSE (test code = 107 mg/dL 70-110 3356364390) CREATININE (test code = 1.04 mg/dL 0.50-1.04 9739033611) TOTAL BILI (test code = 0.3 mg/dL 0.1-1.1 3013670436) CALCIUM (test code = 10.0 mg/dL 8.6-10.6 8156279114) T PROTEIN (test code = 7.6 g/dL 6.3-8.2 2237096230) ALBUMIN (test code = 4.4 g/dL 3.5-5.0 1418301023) ALK PHOS (test code = 138 U/L 34-122 H 4059678194) ALTv (test code = 37 U/L 5-35 H 1742-6) AST(SGOT) (test code = 22 U/L 13-40 3282676327) eGFR (test code = mL/min/1.73m2 5042077725) HECTOR (test code = HECTOR) Association of Glomerular Filtration Rate (GFR) and Staging of Kidney Disease* + --+ --+ ------+| GFR (mL/min/1.73 m2) ?| With Kidney Damage ?| ?Without Kidney Damage+ --------+ --------+ +| ?>90 ?| ?Stage one ?| ? Normal ?+ ---+ ---+ -------+| ?60-89 ?| ?Stage two ?| ? Decreased GFR ? + --+ --+ ------+| ?30-59 ?| ?Stage three ?| ? Stage three ? + --+ --+ ------+| ?15-29 ?| ?Stage four ? | ? Stage four ?+ ---+ ---+ -------+| ?<15 (or dialysis) ? ?| ?Stage five ? | ? Stage five ?+ ---+ ---+ -------+ *Each stage assumes the associated GFR level has been in effect for at least three months. ?Stages 1 to 5, with or without kidney disease, indicate chronic kidney disease. Notes: Determination of stages one and two (with eGFR >59mL/min/1.73 m2) requires estimation of kidney damage for at least three months as defined by structural or functional abnormalities of the kidney, manifested by either:Pathological abnormalities or Markers of kidney damage (including abnormalities in the composition of the blood or urine or abnormalities in imaging tests). Lab Interpretation Abnormal (test code = 73727-5) [facility] [id number] 05:17:04 Test Item Value Reference Range Interpretation Comments WBC (test code = See_Comment [Automated 5543-2) message] The sy stem which generated this result transmitted reference range : 4.30 - 11.10 10*3/?L. The reference range was not used to interpret this result as normal/abnormal . RBC (test code = See_Comment [Automated 711-9) message] The sy stem which generated this result transmitted reference range : 3.93 - 5.25 10*6/?L. The reference range was not used to interpret this result as normal/abnormal . HGB (test code = 13.9 g/dL 11.6-15.0 718-7) HCT (test code = 42.1 % 35.7-45.2 4544-3) MCV (test code = 91.3 fL 80.6-95.5 787-2) MCH (test code = 30.2 pg 25.9-32.8 785-6) MCHC (test code = 33.0 g/dL 31.6-35.1 786-4) RDW-SD (test code = 44.8 fL 39.0-49.9 60927-8) RDW-CV (test code = 13.3 % 12.0-15.5 788-0) PLT (test code = See_Comment H [Automated 777-3) message] The sy stem which generated this result transmitted reference range : 166 - 358 10*3/ ?L. The reference r sivan was not used to interpret this result as normal/abnormal . MPV (test code = 9.5 fL 9.5-12.9 00391-9) NRBC/100 WBC (test See_Comment [Automat ed code = 7150104206) message] The system which generated this result transmitted reference range : 0.0 - 10.0 /100 WBCs. The refer ence range was not u sed to interpret th is result as normal/abnormal . NRBC x10^3 (test code <0.01 See_Comment [Auto mated = 7081122667) message] The s ystem which generated this result transmitted reference range : 10*3/?L. The reference range was not used to interpret this result as normal/abnormal . GRAN MAT (NEUT) % 51.0 % (test code = 770-8) IMM GRAN % (test code 0.20 % = 3801033802) LYMPH % (test code = 38.0 % 736-9) MONO % (test code = 9.1 % 5905-5) EOS % (test code = 1.1 % 713-8) BASO % (test code = 0.6 % 706-2) GRAN MAT x10^3(ANC) 5.01 10*3/uL 1.88-7.09 (test code = 8510348974) IMM GRAN x10^3 (test <0.03 0.00-0.06 code = 3583170490) LYMPH x10^3 (test code 3.74 10*3/uL 1.32-3.29 H = 731-0) MONO x10^3 (test code 0.89 10*3/uL 0.33-0.92 = 742-7) EOS x10^3 (test code = 0.11 10*3/uL 0.03-0.39 711-2) BASO x10^3 (test code 0.06 10*3/uL 0.01-0.07 = 704-7) Lab Interpretation Abnormal (test code = 62675-4) [facility]"
[2021-03-24 16:38] LABS: Urine Blood 1+ (Negative); Urine Glucose Negative (Negative); Urine Protein Trace (Negative); Urine Specific Gravity 1.025 (1.005-1.030)
[2021-03-24] MEDS ORDERED: LIDOCAINE 4% PATCH ONE (16:41)
[2021-03-24] MEDS ORDERED: KETOROLAC 30 MG/ML INJ ONE (17:25)
--- NOTE | 2021-03-24 18:49 | EDPHYS ---
Physician Documentation [facility] Name: Cecille Del Cid Age: 50 yrs Sex: Female : 1970 Arrival Date: 03/24/2021 Time: 16:00 Bed 11 Private MD: ED Physician Amber Martinez HPI: 03/24 16:30 This 50 yrs old Female presents to ER via Ambulatory with complaints of Back Pain, cp Urinary Problem. 16:30 The patient presents with pain that is acute, with no known mechanism of injury. cp 16:30 The symptoms are located in the low back. cp 16:30 Onset: The symptoms/episode began/occurred 2 day(s) ago. cp 16:30 The pain does not radiate. Associated signs and symptoms: Pertinent positives: cp Pertinent negatives: abdominal pain, constipation, dysuria, incontinence, numbness, urinary retention, weakness. 16:30 Patient c/o foul smelling urine. Denies urinary frequency, denies pain with urination. cp Historical: - Allergies: 16:29 Phenergan; jh5 - PMHx: 16:29 "for indigestion"; anxiey; GERD; jh5 - PSHx: 16:29 section; Cholecystectomy; hysterectomy; Right foot sx; jh5 - Immunization history:: Adult Immunizations up to date. - Social history:: Smoking status: Patient reports the use of cigarette tobacco products, smokes one pack cigarettes per day. ROS: 16:35 Constitutional: Negative for body aches, chills, fever, poor PO intake. cp 16:35 Eyes: Negative for injury, pain, redness, and discharge. cp 16:35 Neck: Negative for pain with movement, pain at rest, stiffness. 16:35 Cardiovascular: Negative for chest pain. 16:35 Respiratory: Negative for cough, shortness of breath, wheezing. 16:35 Abdomen/GI: Negative for abdominal pain, nausea, vomiting, and diarrhea, constipation, bowel incontinence. 16:35 Back: Positive for pain at rest, pain with movement, of the low back area, Negative for injury or acute deformity, decreased range of motion. 16:35 : Positive for foul smelling urine, Negative for difficulty urinating, bladder incontinence. 16:35 Neuro: Negative for altered mental status, dizziness, headache, numbness, weakness. 16:35 All other systems are negative. Exam: 16:40 Head/Face: Normocephalic, atraumatic. cp 16:40 Constitutional: The patient appears in no acute distress, alert, awake, non-toxic, well developed, well nourished, obese. 16:40 Chest/axilla: Inspection: normal. 16:40 Cardiovascular: Rate: tachycardic, Rhythm: regular. 16:40 Respiratory: the patient does not display signs of respiratory distress, Respirations: normal, no use of accessory muscles, no retractions, labored breathing, is not present. 16:40 Abdomen/GI: Exam negative for discomfort, distension, guarding, Inspection: abdomen appears normal. 16:40 Back: pain, that is mild, of the low back area, ROM is normal, CVA tenderness, is absent, vertebral tenderness, is not appreciated. 16:40 Neuro: Orientation: to person, place \\T\\ time. Mentation: is normal, Motor: moves all fours, strength is normal, Sensation: is normal, Gait: is steady, at a normal pace, without difficulty, Deep tendon reflexes are 2+ (normal) in the right patellar, right Achilles, left patellar and left Achilles. Vital Signs: 16:28 BP 133 / 85; Pulse 124; Resp 18; Pulse Ox 98% ; Weight 99.79 kg; Height 5 ft. 8 in. jh5 (172.72 cm); 17:53 BP 129 / 86; Pulse 109; Resp 18; Pulse Ox 99% on R/A; ld1 16:28 Body Mass Index 33.45 (99.79 kg, 172.72 cm) [facility] MDM: 16:25 Patient medically screened. cp 18:47 Data reviewed: vital signs, nurses notes, lab test result(s), and as a result, I will cp discharge patient. 03/24 16:38 Order name: Urine Dipstick-Ancillary; Complete Time: 17:09 EDMS 03/24 17:09 Interpretation: Normal except: UKET Trace; UBLD 1+; UPROT Trace. cp 03/24 16:30 Order name: Urine Dipstick-Ancillary (obtain specimen); Complete Time: 16:43 cp 03/24 16:30 Order name: Urine Test (obtain specimen); Complete Time: 16:43 cp 03/24 17:51 Order name: Vital Signs: please update; Complete Time: 17:58 cp Administered Medications: 16:43 Drug: Lidoderm Patch 5 % (700 mg/patch) 1 patches Route: Topical; Site: affected area; ld1 17:29 Drug: Ketorolac 60 mg Route: IM; Site: left deltoid; ld1 17:29 Follow up: Response: No adverse reaction ld1 Disposition: 22:38 Co-signature as Attending Physician, Amber Martinez MD I agree with the assessment and sp3 plan of care. Disposition Summary: 03/24/21 18:48 Discharge Ordered Location: Home cp Problem: new cp Symptoms: have improved cp Condition: Stable cp Diagnosis - Low back pain cp Followup: cp - With: Private Physician - When: 2 - 3 days - Reason: Recheck today's complaints Discharge Instructions: - Discharge Summary Sheet cp - Acute Back Pain, Adult cp - Heat Therapy cp - Back Exercises cp Forms: - Medication Reconciliation Form cp - Thank You Letter cp - Antibiotic Education cp - Prescription Opioid Use cp Prescriptions: - Lidoderm 5 % Topical adhesive patch,medicated - apply 1 patch by TOPICAL route once daily; 1 box; Refills: 0, Product Selection cp Permitted - Cyclobenzaprine 10 mg Oral Tablet - take 1 tablet by ORAL route every 8 hours As needed; 20 tablet; Refills: 0, cp Product Selection Permitted - Diclofenac Sodium 75 mg Oral Tablet Sustained Release - take 1 tablet by ORAL route 2 times per day; 30 tablet; Refills: 0, Product cp Selection Permitted Signatures: Dispatcher [employer] EDNE Joel Altamirano PA PA cp Belle Mckeon RN RN ld1 Amber Martinez MD MD sp3 Le Causey RN RN jh5 Corrections: (The following items were deleted from the chart) 23:58 12 16:40 Constitutional: The patient appears in no acute distress, alert, awake, cp non-toxic, well developed, well nourished, obese, cp 03/24 23:58 12 16:40 Head/Face: Normocephalic, atraumatic. cp cp 03/24 23:58 12 16:40 Chest/axilla: Inspection: normal, cp cp 03/24 23:58 12 16:40 Cardiovascular: Rate: tachycardic, Rhythm: regular, cp cp 03/24 23:58 03/23 16:40 Respiratory: the patient does not display signs of respiratory distress, cp Respirations: normal, no use of accessory muscles, no retractions, labored breathing, is not present, cp 03/24 23:58 03/23 16:40 Abdomen/GI: Exam negative for discomfort, distension, guarding, Inspection: cp abdomen appears normal, cp 03/24 23:58 03/23 16:40 Back: pain, that is mild, of the low back area, ROM is normal, CVA cp tenderness, is absent, vertebral tenderness, is not appreciated, cp 03/24 23:58 03/23 16:40 Neuro: Orientation: to person, place \\T\\ time. Mentation: is normal, Motor: cp moves all fours, strength is normal, Sensation: is normal, Gait: is steady, at a normal pace, without difficulty, Deep tendon reflexes are 2+ (normal) in the right patellar, right Achilles, left patellar and left Achilles, cp
--- NOTE | 2021-03-24 18:49 | ER ---
Nurse's Notes [facility] Name: Cecille Del Cid Age: 50 yrs Sex: Female : 1970 Arrival Date: 03/24/2021 Time: 16:00 Bed 11 Private MD: Diagnosis: Low back pain Presentation: 03/24 16:28 Chief complaint: Patient states: lower back pain/ smelly urine/ frequency x2 days. [facility] Coronavirus screen: Vaccine status: Patient reports being unvaccinated. Client denies travel out of the [place] in the last 14 days. Ebola Screen: Patient negative for fever greater than or equal to 101.5 degrees Fahrenheit, and additional compatible Ebola Virus Disease symptoms Patient denies exposure to infectious person. Patient denies travel to an Ebola-affected area in the 21 days before illness onset. Initial Sepsis Screen: Does the patient meet any 2 criteria? HR > 90 bpm. Does the patient have a suspected source of infection? Yes: Dysuria/Frequency/Urgency/UTI. Risk Assessment: Do you want to hurt yourself or someone else? Patient reports no desire to harm self or others. 16:28 Method Of Arrival: Ambulatory [facility] 16:28 Acuity: ALLI 3 [facility] 16:30 Onset of symptoms was March 24, 2021. [facility] Triage Assessment: 16:30 General: Appears in no apparent distress. Behavior is calm, cooperative, appropriate [facility] for age. Pain: Complains of pain in back. Historical: - Allergies: 16:29 Phenergan; [facility] - PMHx: 16:29 "for indigestion"; anxiey; GERD; [facility] - PSHx: 16:29 section; Cholecystectomy; hysterectomy; Right foot sx; [facility] - Immunization history:: Adult Immunizations up to date. - Social history:: Smoking status: Patient reports the use of cigarette tobacco products, smokes one pack cigarettes per day. Screenin:30 Abuse screen: Denies threats or abuse. Denies injuries from another. Nutritional [facility] screening: No deficits noted. Tuberculosis screening: No symptoms or risk factors identified. Fall Risk None identified. Assessment: 16:31 General: Appears in no apparent distress. comfortable, Behavior is calm, cooperative, ld1 appropriate for age. Pain: Complains of pain in low back area Pain does not radiate. Pain currently is 7 out of 10 on a pain scale. Quality of pain is described as throbbing, Pain began gradually, Is continuous. Neuro: Level of Consciousness is awake, alert, obeys commands, Oriented to person, place, time, situation, Appropriate for age. Cardiovascular: Capillary refill < 3 seconds Patient's skin is warm and dry. Respiratory: Airway is patent Respiratory effort is even, unlabored, Respiratory pattern is regular, symmetrical. GI: Abdomen is round non-distended. : Reports burning with urination, urgency. EENT: No signs and/or symptoms were reported regarding the EENT system. Derm: No signs and/or symptoms reported regarding the dermatologic system. Musculoskeletal: No signs and/or symptoms reported regarding the musculoskeletal system. 17:53 Reassessment: Patient appears in no apparent distress at this time. No changes from ld1 previously documented assessment. Patient and/or family updated on plan of care and expected duration. Pain level reassessed. Patient is alert, oriented x 3, equal unlabored respirations, skin warm/dry/pink. Vital Signs: 16:28 BP 133 / 85; Pulse 124; Resp 18; Pulse Ox 98% ; Weight 99.79 kg; Height 5 ft. 8 in. [facility] (172.72 cm); 17:53 BP 129 / 86; Pulse 109; Resp 18; Pulse Ox 99% on R/A; ld1 16:28 Body Mass Index 33.45 (99.79 kg, 172.72 cm) [facility] ED Course: 16:00 Patient arrived in ED. mr 16:25 Joel Altamirano PA is PHCP. cp 16:25 Amber Martinez MD is Attending Physician. cp 16:29 Belle Mckeon, HANNAH is Primary Nurse. ld1 16:29 Triage completed. [facility] 16:30 Arm band placed on right wrist. 5 16:31 Patient has correct armband on for positive identification. Bed in low position. Call ld1 light in reach. Side rails up X2. Pulse ox on. NIBP on. Door closed. Noise minimized. Warm blanket given. 16:31 No provider procedures requiring assistance completed. ld1 18:56 Patient did not have IV access during this emergency room visit. ld1 Administered Medications: 16:43 Drug: Lidoderm Patch 5 % (700 mg/patch) 1 patches Route: Topical; Site: affected area; ld1 17:29 Drug: Ketorolac 60 mg Route: IM; Site: left deltoid; ld1 17:29 Follow up: Response: No adverse reaction ld1 Outcome: 18:48 Discharge ordered by . ester 18:56 Discharged to home ambulatory. ld1 18:56 Condition: stable 18:56 Discharge instructions given to patient, Instructed on discharge instructions, follow up and referral plans. medication usage, Demonstrated understanding of instructions, follow-up care, medications, Prescriptions given X 3. 18:56 Patient left the ED. ld1 Signatures: Carlie Montgomery Corey, PA PA cp Dibbern, Lauren RN RN ld1 Le Causey RN RN jh5
[2021-03-24 19:27] VITALS: BP 129/86; O2SAT 99
== END 2021-03-24 18:56 | disposition home or self-care (01) ==
LOC: ER 15:54
DX: M54.50 Low back pain, unspecified (principal); F17.210 Nicotine dependence, cigarettes, uncomplicated; Z88.8 Allergy status to other drugs, medicaments and biological substances
CPT/HCPCS: 81003; 96372; 99283

== ENCOUNTER 2021-04-20 23:34 | Emergency (ER) | payer OTHER ==
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
[2021-04-21 01:10] LABS: SARS-COV-2 RT PCR NEGATIVE (NEGATIVE)
[2021-04-21] MEDS ORDERED: ONDANSETRON 4 MG/2 ML VIAL ONE (01:26)
[2021-04-21] MEDS ORDERED: MORPHINE 4 MG/ML SYR ONE (01:26)
[2021-04-21] MEDS ORDERED: NA CHLORIDE 0.9% 1,000 ML ONE (01:35)
[2021-04-21 01:45] LABS: Absolute Lymphocytes (CBC) 3.3 K/uL (0.7-4.9); Hematocrit 40.5 % (36.0-45.0); Lymphocytes % 33.4 % (15.3-44.8); MPV 7.7 fL (7.6-11.3); RBC Red Blood Cell Count 4.52 M/uL (3.86-4.86)
[2021-04-21 01:54] LABS: ALT/SGPT 40 U/L (12-78); AST/SGOT 15 U/L (15-37); Albumin 3.4 g/dL (3.4-5.0); Alkaline Phosphatase 153 U/L (45-117); BUN Blood Urea Nitrogen 10 mg/dL (7-18); Bicarbonate 26 mmol/L (21-32); Bilirubin Direct < 0.1 mg/dL (0-0.2); Bilirubin Total 0.1 mg/dL (0.2-1.0); Glucose Level 100 mg/dL (74-106); Lipase 107 U/L (73-393); Potassium 3.8 mmol/L (3.5-5.1); Protein, Total 7.2 g/dL (6.4-8.2); Sodium Level 141 mmol/L (136-145)
[2021-04-21 02:34] LABS: Urine Blood Trace-intact (Negative); Urine Glucose Negative (Negative); Urine Protein Negative (Negative)
--- NOTE | 2021-04-21 03:34 | EDPHYS ---
Physician Documentation [facility] Name: Cecille Del Cid Age: 50 yrs Sex: Female : 1970 Arrival Date: 04/20/2021 Time: 23:37 Bed 13 Private MD: ED Physician Spencer Scott HPI: 04/21 01:14 This 50 yrs old Female presents to ER via Ambulatory with complaints of Diarrhea, Fever.mh7 01:14 The patient presents to the emergency department with nausea, that is moderate, mh7 vomiting, that is intermittent, described as clear fluid, diarrhea, that is intermittent, abdominal pain, of the abdomen diffusely, described as intermittent, vague,\\E\\ waxing and waning, and does not radiate. Onset: The symptoms/episode began/occurred 3 day(s) ago. Possible causes: unknown. The symptoms are aggravated by nothing. The symptoms are alleviated by nothing. Associated signs and symptoms: Pertinent positives: abdominal pain, diarrhea, nausea, vomiting, Sore throat, body aches, Pertinent negatives: anorexia, belching, constipation, dysuria, fever, flatulence, GI bleeding, hematuria, vaginal discharge. Severity of symptoms: At their worst the symptoms were moderate 2 day(s) ago, in the emergency department the symptoms are unchanged. 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 It has been more than one year since last vaccine. - Social history:: Smoking status: . ROS: 01:14 Constitutional: Negative for fever, chills, and weight loss, Eyes: Negative for injury, mh7 pain, redness, and discharge, Neck: Negative for injury, pain, and swelling, Cardiovascular: Negative for chest pain, palpitations, and edema, Respiratory: Negative for shortness of breath, cough, wheezing, and pleuritic chest pain, Back: Negative for injury and pain, : Negative for injury, bleeding, discharge, and swelling, MS/Extremity: Negative for injury and deformity, Skin: Negative for injury, rash, and discoloration, Neuro: Negative for headache, weakness, numbness, tingling, and seizure, Psych: Negative for depression, anxiety, suicide ideation, homicidal ideation, and hallucinations, Allergy/Immunology: Negative for hives, rash, and allergies, Endocrine: Negative for neck swelling, polydipsia, polyuria, polyphagia, and marked weight changes. Exam: 01:14 Constitutional: This is a well developed, well nourished patient who is awake, alert, mh7 and in no acute distress. Head/Face: Normocephalic, atraumatic. Eyes: Pupils equal round and reactive to light, extra-ocular motions intact. Lids and lashes normal. Conjunctiva and sclera are non-icteric and not injected. Cornea within normal limits. Periorbital areas with no swelling, redness, or edema. ENT: Nares patent. No nasal discharge, no septal abnormalities noted. Tympanic membranes are normal and external auditory canals are clear. Oropharynx with no redness, swelling, or masses, exudates, or evidence of obstruction, uvula midline. Mucous membranes moist. Neck: Trachea midline, no thyromegaly or masses palpated, and no cervical lymphadenopathy. Supple, full range of motion without nuchal rigidity, or vertebral point tenderness. No Meningismus. Chest/axilla: Normal chest wall appearance and motion. Nontender with no deformity. No lesions are appreciated. Cardiovascular: Regular rate and rhythm with a normal S1 and S2. No gallops, murmurs, or rubs. Normal PMI, no JVD. No pulse deficits. Respiratory: Lungs have equal breath sounds bilaterally, clear to auscultation and percussion. No rales, rhonchi or wheezes noted. No increased work of breathing, no retractions or nasal flaring. Abdomen/GI: Soft, non-tender, with normal bowel sounds. No distension or tympany. No guarding or rebound. No evidence of tenderness throughout. Back: No spinal tenderness. No costovertebral tenderness. Full range of motion. Skin: Warm, dry with normal turgor. Normal color with no rashes, no lesions, and no evidence of cellulitis. MS/ Extremity: Pulses equal, no cyanosis. Neurovascular intact. Full, normal range of motion. Neuro: Awake and alert, GCS 15, oriented to person, place, time, and situation. Cranial nerves II-XII grossly intact. Motor strength 5/5 in all extremities. Sensory grossly intact. Cerebellar exam normal. Normal gait. Psych: Awake, alert, with orientation to person, place and time. Behavior, mood, and affect are within normal limits. Vital Signs: 00:10 BP 132 / 98; Pulse 107; Resp 18; Temp 98.4; Pulse Ox 99% on R/A; Weight 106.59 kg; tw5 Height 5 ft. 3 in. (160.02 cm); Pain 9/10; 00:11 Resp 18; tw5 02:33 BP 122 / 68; Pulse 87; Resp 16; Pulse Ox 98% on R/A; ic1 03:34 BP 124 / 89; Pulse 79; Resp 18; Pulse Ox 99% on R/A; ic1 00:10 Body Mass Index 41.63 (106.59 kg, 160.02 cm) tw5 MDM: 03:32 Differential diagnosis: Nonspecific abd pain, gastritis, cholecystitis, pancreatitis, mh7 appendicitis, diverticulitis, viral gastroenteritis, gastroenteritis. Data reviewed: vital signs, nurses notes, lab test result(s), CBC, electrolytes, urinalysis, EKG, radiologic studies, CT scan. Data interpreted: Pulse oximetry: on room air is 98 %. Interpretation: normal. Counseling: I had a detailed discussion with the patient and/or guardian regarding: the historical points, exam findings, and any diagnostic results supporting the discharge/admit diagnosis, lab results, radiology results, the need for outpatient follow up, to return to the emergency department if symptoms worsen or persist or if there are any questions or concerns that arise at home. Response to treatment: the patient's symptoms have resolved after treatment, the patient's blood pressure is in an acceptable range, mental status has returned to baseline, the patient no longer shows bradycardia, the patient is not short of breath, the patient is not tachycardic, the patient's pain is gone, the patient's temperature has normalized, patient is well hydrated. 03:33 Patient medically screened. mh7 04/21 00:16 Order name: COVID-19/FLU A+B (Document "Date of Onset" if Symptomatic); Complete Time: :04/21 00:16 Order name: Strep; Complete Time: 00:42 5 04/21 00:36 Order name: Throat Culture [facility] 04/21 01:08 Order name: Basic Metabolic Panel; Complete Time: 02:42 7 04/21 01:08 Order name: CBC with Diff; Complete Time: 02:42 7 04/21 01:08 Order name: Hepatic Function; Complete Time: 02:42 [facility] 04/21 01:08 Order name: Lipase; Complete Time: 02:42 [facility] 04/21 01:08 Order name: EKG; Complete Time: 01:08 [facility] 04/21 01:09 Order name: CT Abd/Pelvis - IV Contrast Only [facility] 04/21 02:33 Order name: Urine Dipstick-Ancillary; Complete Time: 02:42 [facility] 04/21 01:08 Order name: IV Saline Lock; Complete Time: 01:33 [facility] 04/21 01:08 Order name: Labs collected and sent; Complete Time: 01:33 [facility] 04/21 01:08 Order name: EKG - Nurse/Tech; Complete Time: 01:43 7 Administered Medications: 01:42 Drug: morphine 4 mg Route: IVP; Site: left antecubital; ic1 03:34 Follow up: Response: Pain is decreased ic1 01:42 Drug: Zofran (Ondansetron) 4 mg Route: IVP; Site: left antecubital; ic1 01:43 Drug: NS 0.9% 1000 ml Route: IV; Rate: 1000 ml; Site: left antecubital; ic1 02:07 Follow up: IV Intake: 1000ml ic1 Disposition Summary: 04/21/21 03:33 Discharge Ordered Location: Home [facility] Problem: new [facility] Symptoms: have improved [facility] Condition: Stable [facility] Diagnosis - Diverticulosis 7 - Gastroenteritis [facility] Followup: [facility] - With: Private Physician - When: 1 - 2 days - Reason: Worsening of condition, Recheck today's complaints, Continuance of care, Re-evaluation by your physician Discharge Instructions: - Discharge Summary Sheet [facility] - Diverticulosis [facility] - Viral Gastroenteritis, Adult, [id number] [facility] Forms: - Medication Reconciliation Form [facility] - Thank You Letter [facility] - Antibiotic Education [facility] - Prescription Opioid Use [facility] Prescriptions: - ondansetron 4 mg Oral tablet,disintegrating - place 1 tablet by TRANSLINGUAL route every 8 hours As needed; 10 tablet; [facility] Refills: 0, Product Selection Permitted - Cipro 500 mg Oral Tablet - take 1 tablet by ORAL route every 12 hours for 5 days; 10 tablet; Refills: 0, [facility] Product Selection Permitted - dicyclomine 20 mg Oral Tablet - take 1 tablet by ORAL route 4 times per day As needed; 20 tablet; Refills: 0, [facility] Product Selection Permitted Signatures: Dispatcher [employer] EDSpencer Broderick MD MD [facility] Delores Dowell [facility] Virgen Pak RN RN ic1 Corrections: (The following items were deleted from the chart) 00:14 00:12 PMHx: "for indigestion"; 5 tw5
--- NOTE | 2021-04-21 03:34 | ER ---
Nurse's Notes [facility] Name: Cecille Del Cid Age: 50 yrs Sex: Female : 1970 Arrival Date: 04/20/2021 Time: 23:37 Bed 13 Private MD: Diagnosis: Diverticulosis;Gastroenteritis Presentation: 04/21 00:11 Chief complaint: Patient states: "It started the day after new years. My stomach was tw5 hurting, my throat started hurting. I started running fever. Yesterday I started having diarrhea and I still have it. It is like water. Everything hurts, and I feel really weak.". Coronavirus screen: Vaccine status: Patient reports being unvaccinated. Ebola Screen: Patient negative for fever greater than or equal to 101.5 degrees Fahrenheit, and additional compatible Ebola Virus Disease symptoms Patient denies exposure to infectious person. Patient denies travel to an Ebola-affected area in the 21 days before illness onset. Initial Sepsis Screen: Does the patient meet any 2 criteria? No. Patient's initial sepsis screen is negative. Does the patient have a suspected source of infection? No. Patient's initial sepsis screen is negative. Risk Assessment: Do you want to hurt yourself or someone else? Patient reports no desire to harm self or others. Onset of symptoms was April 17, 2020. 00:11 Method Of Arrival: Ambulatory tw5 00:11 Acuity: ALLI 3 tw5 Triage Assessment: 00:12 General: Appears ill, Behavior is calm, cooperative, appropriate for age. Pain: tw5 Complains of pain in "Headache real bad, the whole body aches." Pain currently is 8 out of 10 on a pain scale. GI: Reports diarrhea. 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 It has been more than one year since last vaccine. - Social history:: Smoking status: . Screenin:33 Abuse screen: Denies threats or abuse. Denies injuries from another. Nutritional ic1 screening: No deficits noted. Tuberculosis screening: No symptoms or risk factors identified. Fall Risk None identified. Assessment: 00:54 General: Appears in no apparent distress. uncomfortable, Behavior is calm, cooperative. ic1 Pain: Complains of pain in head, chest, abdomen, pelvis, right arm, left arm, right leg, left leg, back of left arm, back of right arm, posterior chest, buttocks, back of left leg, back of right leg and back Pain began 2-3 days ago. Neuro: No deficits noted. Cardiovascular: No deficits noted. Respiratory: No deficits noted. GI: Reports lower abdominal pain, upper abdominal pain, diarrhea, nausea. : No deficits noted. EENT: No deficits noted. Derm: No deficits noted. Musculoskeletal: No deficits noted. 02:33 Reassessment: Patient appears in no apparent distress at this time. Patient states ic1 symptoms have not improved. 02:42 General: The pt's SO came to the nurse's station for "more pain medicine". She was harsh given Morphine 1 hour ago and it isn't due, yet. . 03:33 Reassessment: No changes from previously documented assessment. ic1 Vital Signs: 00:10 BP 132 / 98; Pulse 107; Resp 18; Temp 98.4; Pulse Ox 99% on R/A; Weight 106.59 kg; tw5 Height 5 ft. 3 in. (160.02 cm); Pain 9/10; 00:11 Resp 18; tw5 02:33 BP 122 / 68; Pulse 87; Resp 16; Pulse Ox 98% on R/A; ic1 03:34 BP 124 / 89; Pulse 79; Resp 18; Pulse Ox 99% on R/A; ic1 00:10 Body Mass Index 41.63 (106.59 kg, 160.02 cm) tw5 ED Course: 04/20 23:37 Patient arrived in ED. ag3 04/21 00:12 Triage completed. tw5 00:15 Arm band placed on right wrist. tw5 00:41 Spencer Scott MD is Attending Physician. mh7 01:33 Inserted saline lock: 22 gauge in left forearm, using aseptic technique. Blood ds4 collected. 02:20 CT Abd/Pelvis - IV Contrast Only In Process Unspecified. EDMS 03:33 Patient has correct armband on for positive identification. Bed in low position. Call ic1 light in reach. Side rails up X2. 03:49 IV discontinued, intact, bleeding controlled, No redness/swelling at site. Pressure ic1 dressing applied. Administered Medications: 01:42 Drug: morphine 4 mg Route: IVP; Site: left antecubital; ic1 03:34 Follow up: Response: Pain is decreased ic1 01:42 Drug: Zofran (Ondansetron) 4 mg Route: IVP; Site: left antecubital; ic1 01:43 Drug: NS 0.9% 1000 ml Route: IV; Rate: 1000 ml; Site: left antecubital; ic1 02:07 Follow up: IV Intake: 1000ml ic1 Intake: 02:07 IV: 1000ml; Total: 1000ml. ic1 Outcome: 03:33 Discharge ordered by . [facility] 03:48 Discharged to home ambulatory, with significant other. ic1 03:48 Condition: stable 03:48 Discharge instructions given to patient, Instructed on discharge instructions, follow up and referral plans. Demonstrated understanding of instructions, follow-up care, medications, Prescriptions given X 3. 03:50 Patient left the ED. ic1 Signatures: Dispatcher [employer] EDNH Segundo Lopez ds4 Cher Martínez3 Spencer Scott MD MD mh7 Wood, Tiffany tw5 Kriss Milan RN RN bo Creggett, Iesha, RN RN ic1 Corrections: (The following items were deleted from the chart) 00:14 00:12 PMHx: "for indigestion"; tw5 tw5
[2021-04-21 04:17] VITALS: TEMP 98.4
[2021-04-21 04:23] VITALS: BP 124/89; O2SAT 99
--- NOTE | 2021-04-21 11:23 | EKG ---
Test Date: 2021-04-21 Test Time: 01:41:41 Baggage Agent Supervisor: BETINA MEASUREMENT RESULTS: Intervals: Rate: 86 OK: 144 QRSD: 88 QT: 372 QTc: 445 [place]: P: 53 OK: 144 QRS: 23 T: 39 INTERPRETIVE STATEMENTS: Normal sinus rhythm Normal ECG Compared to ECG 01/28/2021 13:23:37 Left ventricular hypertrophy no longer present Electronically Signed On 04-21-21 11:22:11 BILINGUAL INSTRUCTOR by Fransisco Loaiza
--- NOTE | 2021-04-21 13:46 | RAD REPORT ---
EXAM DESCRIPTION: CT - Abdomen Pelvis W Contrast - 04/21/2021 7:17 am CLINICAL HISTORY: 50 years, Female, Diarrhea;Abd pain;Nausea / vomiting COMPARISON: 08/02/2020. TECHNIQUE: Contrast-enhanced images of the abdomen and pelvis were performed utilizing 5 mm slice th ickness at 5 mm interval reconstruction from the lung bases to the ischial tuberosities after the adm inistration IV contrast. In addition multiplanar reformats in the coronal and sagittal plane were obtained and reviewed. This exam was performed according to our departmental dose-optimization protocol, which includes auto mated exposure control, adjustment of the mA and/or kV according to patient size and/or use of iterat emelina reconstruction technique. FINDINGS: The lung bases demonstrate to be clear. The liver, pancreas, spleen and adrenal glands demonstrate to be unremarkable, no focal lesions are n oted. Surgical clips within the gallbladder fossa correspond to previous cholecystectomy. The kidneys demonstrate normal uptake of contrast media. No evidence for nephrolithiasis and/or signi ficant hydronephrosis. Grossly the unopacified stomach, small bowel and large bowel demonstrate to be within normal limits. There is no evidence for bowel dilatation/or free air. The appendix is normal. There is diverticu losis within the left site colon/sigmoid colon The urinary bladder demonstrate to be unremarkable. The uterus is absent. There are no adnexal mass es. The aorta demonstrate to be normal. There is no retroperitoneal lymphadenopathy. There is no evidence for ascites/or significant abnormal fluid collections. The bone windows demonstrate minimal degenerative changes at L5/S1 disc level. IMPRESSION: No acute intra-abdominal process. Status post cholecystectomy and hysterectomy. Diverticulosis without evidence for acute diverticulitis. Electronically signed by: Guanaco Sawant MD 04/21/2021 3:06 AM WAREHOUSE RECEIVING CLERK Due to temporary technical issues with the PACS/Fluency reporting system, reports are being signed by the in house radiologist without review as a courtesy to ensure prompt reporting. The interpreting r adiologist is fully responsible for the content of the report.
== END 2021-04-21 03:50 | disposition home or self-care (01) ==
LOC: ER 23:34
DX: K52.9 Noninfective gastroenteritis and colitis, unspecified (principal); K57.30 Diverticulosis of large intestine without perforation or abscess without bleeding; Z20.822 Contact with and (suspected) exposure to COVID-19
CPT/HCPCS: 93005; 87070; 85025; 80048; 36415; 80076; 87081; 81003; 83690; 0240U; 74177; 96375; 96374; 99284; Q9967; J7030; J2405

== ENCOUNTER 2021-07-18 15:35 | Emergency (ER) | payer OTHER ==
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
[2021-07-18 16:05] LABS: Urine Blood 1+ (Negative); Urine Glucose Negative (Negative); Urine Protein 1+ (Negative); Urine Specific Gravity >=1.030 (1.005-1.030)
[2021-07-18 16:25] LABS: Urine Amorphous Sediment 1+ /HPF (NONE SEEN); Urine Bacteria 20-50 /HPF (<20)
[2021-07-18 16:37] LABS: Hematocrit 42.1 % (36.0-45.0); Lymphocytes % 20.7 % (15.3-44.8); MPV 7.7 fL (7.6-11.3); RBC Red Blood Cell Count 4.79 M/uL (3.86-4.86)
[2021-07-18 16:49] LABS: Potassium 4.2 mmol/L (3.5-5.1)
--- NOTE | 2021-07-18 16:50 | RAD REPORT ---
EXAM DESCRIPTION: CTAbdomen Pelvis W Contrast - 07/18/2021 4:41 pm CLINICAL HISTORY: Abdominal pain. ABD PAIN COMPARISON: Abdomen Pelvis W Contrast dated 04/21/2021; Abdomen Pelvis W Contrast dated 08/02/2020; CT ABD PELVIS W CONTRAST dated 10/27/2013; CT ABD PELVIS W CONTRAST dated 09/23/2013 TECHNIQUE: Biphasic CT imaging of the abdomen and pelvis was performed with 100 ml non-ionic IV cont rast. All CT scans are performed using dose optimization technique as appropriate and may include automated exposure control or mA/KV adjustment according to patient size. FINDINGS: Tiny subpleural areas of nodularity are again seen. Mild fatty liver. Cholecystectomy clips are present. The spleen, pancreas, adrenal glands and kidneys are within normal limits. No bowel obstruction, free air, free fluid or abscess. Mild sigmoid diverticulosis coli is present in the left lower quadrant. The appendix is normal. No evidence of significant lymphadenopathy. Mild lumbosacral degenerative changes. IMPRESSION: Mild diffuse fatty liver. Mild sigmoid diverticulosis coli without diverticulitis.
[2021-07-18] MEDS ORDERED: ONDANSETRON 4 MG/2 ML VIAL ONE (17:18)
[2021-07-18] MEDS ORDERED: KETOROLAC 30 MG/ML INJ ONE (17:18)
--- NOTE | 2021-07-18 17:22 | ER ---
Nurse's Notes [facility] Name: Cecille Del Cid Age: 51 yrs Sex: Female : 1970 Arrival Date: 07/18/2021 Time: 15:38 Bed 10 Private MD: Diagnosis: Low back pain;UTI/ Urinary tract infection, site not specified Presentation: 07/18 15:42 Chief complaint: Patient states: Low back pain and urinary retention x 1 week, reports jl7 no urine today, denies suprapubic pain. Coronavirus screen: At this time, the client does not indicate any symptoms associated with coronavirus-19. Ebola Screen: No symptoms or risks identified at this time. Initial Sepsis Screen: Does the patient meet any 2 criteria? No. Patient's initial sepsis screen is negative. Does the patient have a suspected source of infection? No. Patient's initial sepsis screen is negative. Risk Assessment: Do you want to hurt yourself or someone else? Patient reports no desire to harm self or others. Onset of symptoms was August 11, 2021. 15:42 Method Of Arrival: Ambulatory 7 15:42 Acuity: ALLI 3 jl7 Triage Assessment: 15:44 General: Appears in no apparent distress. uncomfortable, Behavior is calm, cooperative, jl7 appropriate for age. Pain: Complains of pain in low back area Pain does not radiate. Pain currently is 8 out of 10 on a pain scale. COPYWRITING INTERN: 15:44 LMP N/A - Hysterectomy jl7 Historical: - Allergies: 15:44 Phenergan; jl7 - Home Meds: 15:44 famotidine 10 mg Oral chew 1 tab once daily [Active]; Tae Chewable Aspirin 81 mg Oral jl7 chew 1 tab once daily [Active]; atorvastatin 20 mg Oral tab 1 tab once daily [Active]; - PMHx: 15:44 anxiey; GERD; high cholesterol; jl7 - PSHx: 15:44 section; Cholecystectomy; hysterectomy; mass under right breast removal; Right jl7 foot sx; - Immunization history:: Client reports having NOT received the Covid vaccine. - Social history:: Smoking status: Patient reports the use of cigarette tobacco products, smokes one pack cigarettes per day. Screenin:05 Abuse screen: Denies threats or abuse. Denies injuries from another. Nutritional ld1 screening: No deficits noted. Tuberculosis screening: No symptoms or risk factors identified. Fall Risk None identified. Assessment: 15:58 Reassessment: Urine bladder scan - 41mL. ld1 16:05 General: Appears in no apparent distress. comfortable, Behavior is calm, cooperative, ld1 appropriate for age. Pain: Complains of pain in low back area Pain does not radiate. Pain currently is 6 out of 10 on a pain scale. Quality of pain is described as throbbing. Neuro: Level of Consciousness is awake, alert, obeys commands, Oriented to person, place, time, situation. Cardiovascular: Capillary refill < 3 seconds Patient's skin is warm and dry. Respiratory: Airway is patent Respiratory effort is even, unlabored, Respiratory pattern is regular, symmetrical. GI: Abdomen is round non-distended. : Reports urgency. EENT: No signs and/or symptoms were reported regarding the EENT system. Derm: No signs and/or symptoms reported regarding the dermatologic system. Musculoskeletal: No signs and/or symptoms reported regarding the musculoskeletal system. 17:19 Reassessment: Patient appears in no apparent distress at this time. Patient and/or ld1 family updated on plan of care and expected duration. Pain level reassessed. Pt reporting lower back pain. Notified ERP. See MAR for orders. Vital Signs: 15:42 BP 109 / 73; Pulse 128; Resp 17; Temp 98; Pulse Ox 99% ; Pain 8/10; jl7 16:05 BP 117 / 77; Pulse 109; Resp 18; Pulse Ox 100% on R/A; Pain 6/10; ld1 17:19 BP 123 / 78; Pulse 103; Resp 18; Pulse Ox 99% on R/A; Pain 7/10; ld1 ED Course: 15:38 Patient arrived in ED. as 15:43 Triage completed. jl7 15:44 Tierra Gay FNP-C is [facility] kb 15:44 Lenny Arevalo MD is Attending Physician. kb 15:44 Arm band placed on right wrist. jl7 15:46 Belle Mckeon, HANNAH is Primary Nurse. ld1 16:05 Patient has correct armband on for positive identification. Placed in gown. Bed in low ld1 position. Call light in reach. Side rails up X2. front desk monitor on. Pulse ox on. NIBP on. Door closed. Noise minimized. Warm blanket given. 16:05 Urine Microscopic Only Sent. ld1 16:05 No provider procedures requiring assistance completed. ld1 16:27 Inserted saline lock: 20 gauge in right forearm, using aseptic technique. Blood ld1 collected. 16:43 CT Abd/Pelvis - IV Contrast Only In Process Unspecified. EDMS 17:33 IV discontinued, intact, bleeding controlled, No redness/swelling at site. ld1 Administered Medications: 17:18 Drug: Zofran (Ondansetron) 4 mg Route: IVP; Site: right forearm; ld1 17:18 Drug: Ketorolac 15 mg Route: IVP; Site: right forearm; ld1 17:32 Drug: Rocephin (cefTRIAXone) 1 grams Route: IV; Rate: calculated rate; Site: right ld1 forearm; Outcome: 17:22 Discharge ordered by MD. kb 17:33 Discharged to home ambulatory. ld1 17:33 Condition: stable 17:33 Discharge instructions given to patient, Instructed on discharge instructions, follow up and referral plans. Demonstrated understanding of instructions, follow-up care, medications, Prescriptions given X 2. 17:33 Patient left the ED. ld1 Signatures: Dispatcher [employer] EDMS Tierra Gay, DAVY-C [employer]-Ashleigh Haywood Jahala RN RN jl7 Belle Mckeon RN RN ld1 Corrections: (The following items were deleted from the chart) 17:19 17:19 Reassessment: Patient appears in no apparent distress at this time. Patient ld1 and/or family updated on plan of care and expected duration. Pain level reassessed. Patient is alert, oriented x 3, equal unlabored respirations, skin warm/dry/pink. ld1
--- NOTE | 2021-07-18 17:23 | EDPHYS ---
Physician Documentation [facility] Name: Cecille Del Cid Age: 51 yrs Sex: Female : 1970 Arrival Date: 07/18/2021 Time: 15:38 Bed 10 Private MD: ZOHAIB Physician Lenny Arevalo HPI: 07/18 17:19 This 51 yrs old Female presents to ER via Ambulatory with complaints of Low Back Pain, kb Urinary Retention. 17:20 The patient presents with urinary symptoms, difficulty urinating, decreased urination. kb Onset: The symptoms/episode began/occurred this morning. Modifying factors: The symptoms are alleviated by nothing, the symptoms are aggravated by nothing. Associated signs and symptoms: Pertinent positives: low back pain, decreased urination, difficulty urinating. Severity of symptoms: At their worst the symptoms were moderate, in the emergency department the symptoms are unchanged. The patient has not experienced similar symptoms in the past. The patient has not recently seen a physician. 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 - Social history:: Smoking status: Patient reports the use of cigarette tobacco products, smokes one pack cigarettes per day. ROS: 17:17 Constitutional: Negative for fever, chills, and weight loss. kb 17:17 Back: Positive for of the low back area. 17:17 : Positive for difficulty urinating, decreased urination. 17:17 All other systems are negative. Exam: 17:17 Constitutional: This is a well developed, well nourished patient who is awake, alert, kb and in no acute distress. Head/Face: Normocephalic, atraumatic. ENT: Moist Mucous membranes Respiratory: Respirations even and unlabored. No increased work of breathing. Talking in full sentences Abdomen/GI: Soft, non-tender. No distention Skin: Warm, dry with normal turgor. Normal color. MS/ Extremity: Pulses equal, no cyanosis. Neurovascular intact. Full, normal range of motion. Neuro: Awake and alert, GCS 15, oriented to person, place, time, and situation. Moves all extremities. Normal gait. 17:17 Back: pain, that is moderate, of the low back area, ROM is normal, CVA tenderness, is absent. Vital Signs: 15:42 BP 109 / 73; Pulse 128; Resp 17; Temp 98; Pulse Ox 99% ; Pain 8/10; jl7 16:05 BP 117 / 77; Pulse 109; Resp 18; Pulse Ox 100% on R/A; Pain 6/10; ld1 17:19 BP 123 / 78; Pulse 103; Resp 18; Pulse Ox 99% on R/A; Pain 7/10; ld1 MDM: 15:46 Patient medically screened. kb 17:08 Data reviewed: vital signs, nurses notes. Data interpreted: Pulse oximetry: on room air kb is 100 %. Interpretation: normal. Counseling: I had a detailed discussion with the patient and/or guardian regarding: the historical points, exam findings, and any diagnostic results supporting the discharge/admit diagnosis, lab results, radiology results, the need for outpatient follow up, a family practitioner, to return to the emergency department if symptoms worsen or persist or if there are any questions or concerns that arise at home. 07/18 15:58 Order name: Urine Microscopic Only; Complete Time: 16:30 [facility] 07/18 16:05 Order name: Urine Dipstick-Ancillary; Complete Time: 16:11 [facility] 07/18 16:07 Order name: Urine --Ancillary (enter results); Complete Time: 16:20 eb 07/18 16:11 Order name: CBC with Diff; Complete Time: 16:45 kb 07/18 16:11 Order name: Basic Metabolic Panel; Complete Time: 16:54 kb 07/18 16:28 Order name: Urine Culture [facility] 07/18 15:44 Order name: Bladder Scanner; Complete Time: 15:58 kb 07/18 15:58 Order name: Urine Dipstick-Ancillary (obtain specimen); Complete Time: 16:05 [facility] 07/18 16:11 Order name: IV Start; Complete Time: 16:27 kb 07/18 16:11 Order name: CT Abd/Pelvis - IV Contrast Only; Complete Time: 16:54 kb Administered Medications: 17:18 Drug: Zofran (Ondansetron) 4 mg Route: IVP; Site: right forearm; ld1 17:18 Drug: Ketorolac 15 mg Route: IVP; Site: right forearm; ld1 17:32 Drug: Rocephin (cefTRIAXone) 1 grams Route: IV; Rate: calculated rate; Site: right ld1 forearm; Disposition: 17:54 Co-signature as Attending Physician, Lenny Arevalo MD. rn Disposition Summary: 07/18/21 17:22 Discharge Ordered Location: Home kb Condition: Stable kb Diagnosis - Low back pain kb - UTI/ Urinary tract infection, site not specified kb Followup: kb - With: Emergency Department - When: As needed - Reason: Worsening of condition Followup: kb - With: Private Physician - When: 2 - 3 days - Reason: Recheck today's complaints, Continuance of care, Re-evaluation by your physician Discharge Instructions: - Discharge Summary Sheet kb - Musculoskeletal Pain kb - Urinary Tract Infection, Adult, [id number] kb Forms: - Medication Reconciliation Form kb - Thank You Letter kb - Antibiotic Education kb - Prescription Opioid Use kb Prescriptions: - Macrobid 100 mg Oral Capsule - take 1 capsule by ORAL route every 12 hours for 10 days; 20 capsule; Refills: kb 0, Product Selection Permitted - Diclofenac Sodium 75 mg Oral tablet,delayed release (DR/EC) - take 1 tablet by ORAL route 2 times per day As needed; 30 tablet; Refills: 0, kb Product Selection Permitted Signatures: Dispatcher [employer] Tierra Cota, DAVY-Lenny Murphy MD MD rn Leal, Jahala RN RN jl7 Belle Mckeon RN RN ld1
[2021-07-18] MEDS ORDERED: CEFTRIAXONE 1000 MG/VIAL ONE (17:27)
[2021-07-18 18:49] VITALS: TEMP 98
[2021-07-18 18:52] VITALS: BP 123/78; O2SAT 99
== END 2021-07-18 17:33 | disposition home or self-care (01) ==
LOC: ER 15:35
DX: N39.0 Urinary tract infection, site not specified (principal); E78.00 Pure hypercholesterolemia, unspecified; F41.9 Anxiety disorder, unspecified; F17.210 Nicotine dependence, cigarettes, uncomplicated; Z79.82 Long term (current) use of aspirin; Z88.8 Allergy status to other drugs, medicaments and biological substances
CPT/HCPCS: 87088; 85025; 87086; 80048; 36415; 81025; 82565; 74177; 96375; 96374; 99284; Q9967; J2405; 81003; 81015

== ENCOUNTER 2021-07-21 18:16 | Emergency (ER) | payer OTHER ==
--- OUTSIDE RECORDS SUMMARY | 2021-07-21 18:19 | XMS REPORT | Continuity of Care Document ---
:1970 Author Organization [facility] t Address [address] [place] [address] Care Team Providers Name Role Phone Claudio PERZE, Vinod Primary Care Physician TITA Attending Clinician Unavailable Vinod Holcomb Attending Clinician Severino Ha Attending Clinician Unavailable AMY, K.HLencho Attending Clinician Unavailable Amy PEREZ, K.H. Attending Clinician Provider, Urgent Care Attending Clinician Unavailable Sim MELLO Attending Clinician TITA Admitting Clinician Unavailable Severino Ha Admitting Clinician Unavailable Payers Payer Name Policy Type Policy Number Effective Date Expiration Date S ource $00 D [id number] 2020 00:00:00 [facility] [id number] 2019 00:00:00 PLUS Problems Condition Condition Condition Status Onset Resolution Last Treating Co mments Source Name Details Category Date Date Treatment Clinician Date Screening Screening Disease Active Overview: Univers for for 05-07 Formattin ity of colorectal colorectal 00:00: g of this [place] cancer cancer 00 note Medical might be Branch different from the original. Added automatic ally from request for surgery [id number] Acid Acid Disease Active Overview: Univ s indigestio indigestio 1-21 Formattin ity of n n 00:00: g of this [place] 00 note Medical might be Branch different from the original. Added automatic ally from request for surgery [id number] Chest pain Chest pain Disease Active 2020-04 [...] 7-12 it y of ve ve 00:00: [place] [facility] Genital Genital Disease Active 2020- Univers warts warts 7-12 ity of 00:00: [place] [facility] Obesity Obesity Disease Active 2019- [...] 6-22 ity of 00:00: [place] 00 Medical [place] History of History of Disease Active U nivers traumatic traumatic ity of head head [place] injury injury [facility] Pulmonary Pulmonary Disease Active Uni vers nodules nodules ity of [facility] Allergies, Adverse Reactions, Alerts Allergy Allergy Status Severity Reaction(s) Onset Inactive Treating Comm ents Source Name Type Date Date Clinician fentanyl DA Active MO RASH 2020-04 [facility] 1-18 [place] 00:00: [facility] 00 l [facility] METFORMI DRUG Active Other-Cmnt Univ ers N INGREDI 10-06 ity of 00:00: [place] 00 Medical [place] Metformi Propensi Active Other - See Lactic U nivers n ty to comments 10-06 acidosis? ity o f adverse 00:00: [place] reaction 00 [facility] FENTANYL DRUG Active Hives 2016-04 Univers INGREDI 0-18 ity of 00:00: [place] 00 [facility] Fentanyl Propensi Active Hives 2016-04 Univer s ty to 0-18 ity of adverse 00:00: [place] reaction 00 [facility] Social History Social Habit Start Date Stop Date Quantity Comments Source History of tobacco Cigarette Smoker University of use [facility] Exposure to Not sure University of SARS-CoV-2 (event) [facility] Alcohol intake 2021-04-27 2021-04-27 Ex-drinker University of 00:00:00 00:00:00 (finding) [facility] Tobacco use and 2019-10-07 2019-10-07 Never used Universit y of exposure 00:00:00 00:00:00 [facility] Cigarettes smoked 2019-10-07 2019-10-07 Univers ity of current (pack per 00:00:00 00:00:00 [facility] [place] [facility] ) - Reported Branch Cigarette 2019-10-07 2019-10-07 University of pack-years 00:00:00 00:00:00 [facility] Sex Assigned At [birth year] Universit y of 00:00:00 00:00:00 [facility] Smoking Status Start Date Stop Date Source Current every day smoker 2019-10-07 00:00:[address] [facility] Medications Ordered Filled Start Stop Current Ordering Indication Dosage Frequency Signature Comments Components Source Medication Medication Date Date Medication? Clinician (SIG) Name Name famotidine 2020-04 Yes [id number] 40mg Take 1 Univers 40 mg 2-06 tablet by ity of tablet 00:00: mouth [place] 00 daily. Medical Branch atorvastati 2020-04- No [id number] 20mg Take 1 Univers n 20 mg 0-26 01-25 tablet by ity of tablet 00:00: 05:59 mouth at [place] 00 :00 bedtime Medical for 90 Branch days. busPIRone 2020-04 Yes [id number] 7.5mg Take 0.5-1 Univers 15 mg 0-21 tablets by ity of tablet 00:00: mouth 2 00 (two) Medical times Branch daily as needed (anxiety). busPIRone 2020-04 Yes [id number] 7.5mg Take 0.5-1 Univers 15 mg 0-21 tablets by ity of tablet 00:00: mouth 2 (two) Medical times Branch daily as needed (anxiety). ergocalcife Yes [id number] 30083F Take 1 Univers rol, 6-30 capsule by ity of vitamin d2, 00:00: mouth [place] (VITAMIN 00 weekly. Medical D2) 1,250 Branch mcg (50,000 unit) capsule ergocalcife Yes [id number] 80839L Take 1 Univers rol, 6-30 capsule by ity of vitamin d2, 00:00: mouth [place] (VITAMIN 00 weekly. Medical D2) 1,250 Branch mcg (50,000 unit) capsule atorvastati 2020- No [id number] 10mg Take 1 Univers n 10 mg 6-30 10-26 tablet by ity of tablet 00:00: 00:00 mouth at [place] 00 :00 bedtime. Medical Branch omeprazole 2020- No [id number] 20mg Take 1 Univers 20 mg 6-29 12-06 capsule by ity of capsule 00:00: 00:00 mouth [place] 00 :00 daily. Medical Branch traMADoL 50 Yes [id number] 50mg Take 1 Univ ers mg tablet 5-07 tablet by ity o f 00:00: mouth [place] 00 every 6 Medical (six) Branch hours as needed for Pain (scale 7-10). Indication s: acute pain ibuprofen Yes [id number] 600mg Take 1 Un alvina 600 mg [...] 7-10). Indication s: acute pain ibuprofen Yes [id number] 600mg Take 1 Un alvina 600 mg 5-07 tablet by ity of tablet 00:00: mouth [place] 00 every 6 Medical (six) Branch hours as needed for Pain (scale 4-6). lidocaine 2 Yes [id number] 1mL Apply 0.5 Univers % mucosal 7-17 Inches to ity o f jelly 00:00: area(s) as [place] 00 needed for Medical Pain Branch (scale 4-6). lidocaine 2 Yes [id number] 1mL Apply 0.5 Univers % mucosal 7-17 Inches to ity o f jelly 00:00: area(s) as [place] 00 needed for Medical Pain Branch (scale 4-6). albuterol Yes [id number] 2{puff} Inhale 2 Univers 90 6-22 Puffs ity of mcg/actuati 00:00: every 4 [place] as on inhaler 00 (four) Medical hours as Branch needed for Wheezing, Shortness of Breath, Bronchospa sm or Chest tightness. albuterol 0 Yes [id number] 2.5mg Inhale 3 Univers 2.5 mg /3 6-22 mL every 4 ity of mL (0.083 00:00: (four) [place] %) 00 hours as Medical nebulizer needed for Bran ch solution Wheezing or Shortness of Breath. albuterol 2019-0 Yes [id number] 2{puff} Inhale 2 Univers 90 6-22 Puffs ity of mcg/actuati 00:00: every 4 [place] as on inhaler 00 (four) Medical hours as Branch needed for Wheezing, Shortness of Breath, Bronchospa sm or Chest tightness. albuterol 2020-0 Yes [id number] 2.5mg Inhale 3 Univers 2.5 mg /3 6-22 mL every 4 ity of mL (0.083 00:00: (four) [place] %) 00 hours as Medical nebulizer needed for Bran ch solution Wheezing or Shortness of Breath. Vital Signs Vital Name Observation Time Observation Value Comments Source Systolic blood 2021-02-09 19:21:00 114 mm[Hg] Univer sity of pressure [facility] Diastolic blood 2021-02-09 19:21:00 84 mm[Hg] Unive rsity of pressure [facility] Heart rate 2021-02-09 19:21:00 97 /min [facility] Respiratory rate 2021-02-09 19:21:00 22 /min Univ ersity [facility] Body height 2021-02-09 19:21:00 161.3 cm [facility] Body weight 2021-02-09 19:21:00 98.158 kg [facility] BMI 2021-02-09 19:21:00 37.73 kg/m2 [facility] Oxygen saturation in 2021-02-09 19:21:00 97 /min [facility] Arterial blood by [facility] Pulse oximetry Branch Procedures This patient has no known procedures. Encounters Start End Encounter Admission Attending Care Care Encounter Source Date/Time Date/Time Type Type Clinicians Facility Department ID 2021-07-10 Outpatient [facility] [id number] [place] 00:47:44 [id number] [facility] 2021-06-09 [email or web address] ABEBA [id number] Univers 12:41:[address] [facility] 2021-07-03 2021-07-03 Outpatient Kirk [facility] [id number] Univers 11:45:00 11:45:[address] [facility] 2021-06-17 2021-06-17 Telephone [facility] [id number] Univers 00:00:00 00:00:00 Yesica FAJARDO [id number] [facility] [id number] Matilde SHARPESSIO [phone] Ar dical [place] [address] Branch BUILDING 2021-03-05 2021-03-06 Inpatient EM Dilcia [facility] [id number] [facility] 17:30:00 14:29:00 , Uvaldo [id number] [facility] 2021-03-05 2021-03-06 [facility] [id number] [facility] 17:30:00 14:29:00 , Uvaldo 17 [facility] 2021-03-04 2021-03-04 Inpatient EM Dil[facility] [id number] [facility] 21:31:00 21:30:00 , Uvaldo [id number] [facility] 2021-02-09 2021-02-09 Outpatient R AMY [facility] [id number] Univers 14:00:00 14:55:36 [facility] 2021-02-09 2021-02-09 [email or web address] [id number] [facility] 14:00:00 14:55:36 Visit Soniya FAJARDO [id number] alvino [facility] [id number] [facility] PROFESSIO [phone] Ar dical [facility] 059 [facility] 2020-07-28 2020-07-28 [email or web address] [id number] 18:16:33 18:36:33 Care [facility] [id number] Care [facility] [id number] Professio [phone] nal 044 Office [address] 2019-11-07 2019-11-07 Office [facility] [id number] 11:03:22 11:23:22 Visit Aster Fajardo [id number] Pedro [id number] Professio [phone] [facility] 085 [facility] Results Test Description Test Time Test Comments [...] message] The code = HEMINDEX) Index/DL system [facility] generated this result tra nsmitted reference [...] HD (test code = LDLC) [facility] [id number] [place], [place] [id number] Brad Garza MD [phone] LIPOPROTEIN VLDL (test 22 mg/dL 5-40 code = VLDL) CBC W/AUTO [id number] 05:12:00 Test Item Value Reference Range Interpretation [...] 0.00 K/mm3 0.0-0.05 N NRBC#) PT AND [id number] 05:07:00 Test Item Value Reference Interpretation Comments [...] prevention in p rosthetic heart 3.0-5.4 A ND mortality reduc tion THROMBOPLASTIN TIME 33.3 SECONDS 24-37.7 N THERAPEU TIC RANGE FOR PARTIAL (test code UNFRACTIO NATED HEPARIN = = PTT) 50.5-83.6 SEC T his test is not recommen ded to monitor low molecularweight heparin or danaparoid. Order LMWH test COLLECTION THROUGH LINES THAT HAVE BEEN PREVIOUSLY FLUS HEDWITH HEPARIN SHOULD BE AVOIDED DUE TO POSSIBLE HEPARINCONTAMIN ATION [id number] 01:09:00 Test Item Value Reference Range Interpretation [...] change s in troponin levelscharacter istic of ND. [id number] 21:49:00 Test Item Value Reference Range Interpretation [...] change s in troponin levelscharacter istic of ND. [id number] 18:41:00 Test Item Value Reference Range Interpretation [...] change s in troponin levelscharacter istic of ND. [id number] 05:05:00 Test Item Value Reference Range Interpretation [...] change s in troponin levelscharacter istic of ND. [id number] 02:44:00 Test Item Value Reference Range Interpretation Comments D-DIMER (test 270 FEUng/mL 0-500 N THE CUT-OFF VA LUE FOR code = DDIMER) EXCLUSION OF VTE = 500 FEU ng/mLNOTE: This method must be used with additional test s in theevaluation o f VTE and should not be u sed to exclude VTE wit hpretest probability kaitlin ne. BASIC METABOLIC [id number] 01:44:00 Test Item Value Reference Range Interpretation [...] (test code = MG Index/DL The system [employer]) generated this result transmit navin reference range [...] The system which generated this result transmit nvain reference range : 1 NORMAL. The reference range was not used to interpret this result as normal/abnormal . [id number] 01:44:00 Test Item Value Reference Range Interpretation [...] change s in troponin levelscharacter istic of ND. CBC W/O [id number] 01:03:00 Test Item Value Reference Range Interpretation [...] 6.8-11.2 N MPV) - XR CHEST 1 [id number] 22:11:00 [facility] DONNIE DINH : 1970 Sex: F FAX: Mary Becker NP [phone] [place]: E St: PRE Patient Name: DONNIE DINH Unit No: [id number] EXAMS: CPT CODE: [id number] XR CHEST 1 V [id number] - XR CHEST 1 V, 03/04/2021 9:46 [...] 03/04/2021 (2213) EMMY Berman NAME: DONNIE DINH [address] [place] [address] PHYS: Mary Bryan NP, [place] [address] : 1970 AGE: 50 SEX: F LOC: B.ERS PHONE #: [phone] EXAM DATE: 03/04/2021 STATUS: PRE ER FAX #: [phone] RAD NO: DC Dt: PAGE 1 Signed Report
[2021-07-21] MEDS ORDERED: ONDANSETRON 4 MG/2 ML VIAL ONE (18:34)
[2021-07-21] MEDS ORDERED: KETOROLAC 30 MG/ML INJ ONE (18:34)
[2021-07-21] MEDS ORDERED: NA CHLORIDE 0.9% 1,000 ML ONE (18:35)
[2021-07-21 18:54] LABS: Hematocrit 43.3 % (36.0-45.0); Lymphocytes % 34.9 % (15.3-44.8); MPV 7.8 fL (7.6-11.3); RBC Red Blood Cell Count 4.93 M/uL (3.86-4.86)
[2021-07-21 19:02] LABS: Potassium 4.5 mmol/L (3.5-5.1)
[2021-07-21 19:13] LABS: Urine Blood 1+ (Negative); Urine Glucose Negative (Negative); Urine Protein Trace (Negative); Urine Specific Gravity >=1.030 (1.005-1.030)
[2021-07-21 19:21] LABS: Urine Bacteria <20 /HPF (<20); Urine Mucus 1+ /HPF (NONE SEEN)
--- NOTE | 2021-07-21 19:38 | RAD REPORT ---
EXAM DESCRIPTION: CT - Stone Protocol - 07/21/2021 7:30 pm CLINICAL HISTORY: Flank pain. FLANK PAIN COMPARISON: Abdomen Pelvis W Contrast dated 07/18/2021 TECHNIQUE: Axial images were obtained without oral or IV contrast. Lack of contrast limits solid org an and vascular assessment. The voiqx-vn-wdal spans the entirety of the system partially obscuring uppermost abdomen and lung bases. Coronal reformatted images were obtained and reviewed. All CT scans are performed using dose optimization technique as appropriate and may include automated exposure control or mA/KV adjustment according to patient size. FINDINGS: The lower lung gifford are clear. Cholecystectomy clips. Imaged portions of the liver and spleen show no suspicious findings on non-contrast imaging. The panc reas and adrenal glands are normal. No pathologic lymphadenopathy in the abdomen or pelvis. No urinary tract stones or obstructive uropathy. No bowel obstruction, free air, free fluid or abscess. Normal appendix noted.Mild sigmoid diverticulo sis coli. Moderate lumbosacral degenerative changes. IMPRESSION: No urinary tract stones or obstructive uropathy.
--- NOTE | 2021-07-21 19:47 | EDPHYS ---
Physician Documentation [facility] Name: Cecille Del Cid Age: 51 yrs Sex: Female : 1970 Arrival Date: 07/21/2021 Time: 18:17 Bed 28 Private MD: ED Physician Perry Pires HPI: 07/21 19:03 This 51 yrs old Female presents to ER via Ambulatory with complaints of Back Pain - kb worsening. 19:03 The patient complains of pain in the left flank and right flank. The pain does not kb radiate. Onset: The symptoms/episode began/occurred 3 day(s) ago. Modifying factors: The symptoms are alleviated by nothing. the symptoms are aggravated by palpation/percussion. Associated signs and symptoms: Pertinent positives: nausea, vomiting, Pertinent negatives: diarrhea, dizziness, dysuria, fever, urinary frequency, headache, hematuria, pain radiating to the lower extremities. Severity of pain: At its worst the pain was moderate in the emergency department the pain is unchanged. The patient has not experienced similar symptoms in the past. The patient has not recently seen a physician. Pt reports bilateral flank pain that has gotten worse since visit on 07/18/21. States she has passed 2 stones since discharge.. 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 Flu vaccine is not up to date. - Social history:: Smoking status: Patient reports the use of cigarette tobacco products, smokes one pack cigarettes per day. ROS: 19:03 Constitutional: Negative for fever, chills, and weight loss. kb 19:03 Abdomen/GI: Positive for nausea and vomiting, Negative for abdominal pain. 19:03 : Positive for flank pain. 19:03 All other systems are negative. Exam: 19:04 Constitutional: This is a well developed, well nourished patient who is awake, alert, kb and in no acute distress. Head/Face: Normocephalic, atraumatic. ENT: Moist Mucous membranes Cardiovascular: Regular rate and rhythm with a normal S1 and S2. No gallops, murmurs, or rubs. No pulse deficits. Respiratory: Respirations even and unlabored. No increased work of breathing. Talking in full sentences Abdomen/GI: Soft, non-tender. No distention Skin: Warm, dry with normal turgor. Normal color. MS/ Extremity: Pulses equal, no cyanosis. Neurovascular intact. Full, normal range of motion. Neuro: Awake and alert, GCS 15, oriented to person, place, time, and situation. Moves all extremities. Normal gait. Psych: Awake, alert, with orientation to person, place and time. Behavior, mood, and affect are within normal limits. 19:04 Back: CVA tenderness, that is mild, is noted bilaterally. Vital Signs: 18:24 BP 137 / 81; Pulse 122; Resp 18 S; Temp 97.7(TE); Pulse Ox 98% on R/A; Weight 90.72 kg jd3 (R); Height 5 ft. 3 in. (160.02 cm) (R); Pain 10/10; 19:47 BP 124 / 75; Pulse 89; Resp 16; Pulse Ox 96% on R/A; jb4 18:24 Body Mass Index 35.43 (90.72 kg, 160.02 cm) jd3 MDM: 18:29 Patient medically screened. kb 19:02 Data reviewed: vital signs, nurses notes. Data interpreted: Pulse oximetry: on room air kb is 98 %. Interpretation: normal. 19:46 Counseling: I had a detailed discussion with the patient and/or guardian regarding: the kb historical points, exam findings, and any diagnostic results supporting the discharge/admit diagnosis, lab results, radiology results, the need for outpatient follow up, a family practitioner, to return to the emergency department if symptoms worsen or persist or if there are any questions or concerns that arise at home. 07/21 18:29 Order name: CBC with Diff; Complete Time: 19:00 kb 07/21 18:29 Order name: Basic Metabolic Panel; Complete Time: 19:05 kb 07/21 18:27 Order name: CT Stone Protocol; Complete Time: 19:40 kb 07/21 18:33 Order name: Urine Microscopic Only; Complete Time: 19:30 kb 07/21 19:14 Order name: Urine Dipstick-Ancillary; Complete Time: 19:19 EDCA 07/21 18:29 Order name: IV Start; Complete Time: 18:44 kb 07/21 18:33 Order name: Urine Dipstick-Ancillary (obtain specimen); Complete Time: 19:13 kb 07/21 19:41 Order name: Vital Signs; Complete Time: 19:45 kb Administered Medications: 18:43 Drug: NS 0.9% 1000 ml Route: IV; Rate: 1000 ml; Site: right antecubital; ld1 20:13 Follow up: Response: No adverse reaction; IV Status: Completed infusion; IV Intake: jb4 1000ml 18:43 Drug: Ketorolac 30 mg Route: IVP; Site: right antecubital; ld1 20:13 Follow up: Response: No adverse reaction; Marked relief of symptoms; Pain is decreased jb4 18:43 Drug: Zofran (Ondansetron) 4 mg Route: IVP; Site: right antecubital; ld1 20:13 Follow up: Response: No adverse reaction; Marked relief of symptoms jb4 Disposition: 07/22 07:27 Co-signature as Attending Physician, Perry Pires MD I agree with the assessment and kdr plan of care. Disposition Summary: 07/21/21 19:46 Discharge Ordered Location: Home kb Condition: Stable kb Diagnosis - Low back pain kb Followup: kb - With: Emergency Department - When: As needed - Reason: Worsening of condition Followup: kb - With: Private Physician - When: 2 - 3 days - Reason: Recheck today's complaints, Continuance of care, Re-evaluation by your physician Discharge Instructions: - Discharge Summary Sheet kb - Acute Back Pain, Adult kb Forms: - Medication Reconciliation Form kb - Thank You Letter kb - Antibiotic Education kb - Prescription Opioid Use kb Prescriptions: - Ibuprofen 800 mg Oral Tablet - take 1 tablet by ORAL route every 8 hours As needed take with food; 30 tablet; kb Refills: 0, Product Selection Permitted Signatures: Dispatcher [employer] EDMS Victor Hugo, Tierra, CPO-C CPO-Ckb Perry Pires MD MD kdr Davies, Jonathon RN RN jd3 Belle Mckeon RN RN ld1 Dominique Pat PA PA sb3 Govind Can RN jb4 Corrections: (The following items were deleted from the chart) 07/21 19:04 19:03 Onset: The symptoms/episode began/occurred 3 day(s) ago, kb kb
--- NOTE | 2021-07-21 19:47 | ER ---
Nurse's Notes [facility] Name: Cecille Del Cid Age: 51 yrs Sex: Female : 1970 Arrival Date: 07/21/2021 Time: 18:17 Bed 28 Private MD: Diagnosis: Low back pain Presentation: 07/21 18:23 Chief complaint: Patient states: "My back is hurting very bad. I was told it was just a jd3 UTI, but it is hurting more like a kidney stones.". Coronavirus screen: At this time, the client does not indicate any symptoms associated with coronavirus-19. Ebola Screen: No symptoms or risks identified at this time. Initial Sepsis Screen: Does the patient meet any 2 criteria? No. Patient's initial sepsis screen is negative. Does the patient have a suspected source of infection? No. Patient's initial sepsis screen is negative. Risk Assessment: Do you want to hurt yourself or someone else? Patient reports no desire to harm self or others. Onset of symptoms was July 21, 2021. 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 Flu vaccine is not up to date. - Social history:: Smoking status: Patient reports the use of cigarette tobacco products, smokes one pack cigarettes per day. Screenin:30 Abuse screen: Denies threats or abuse. Nutritional screening: No deficits noted. jb4 Tuberculosis screening: No symptoms or risk factors identified. Fall Risk None identified. Assessment: 18:30 General: Appears in no apparent distress. uncomfortable, Behavior is calm, cooperative, jb4 appropriate for age. Pain: Complains of pain in back Pain does not radiate. Pain currently is 10 out of 10 on a pain scale. 18:30 Neuro: Level of Consciousness is awake, alert, obeys commands, Oriented to person, jb4 place, time, situation. Cardiovascular: Patient's skin is warm and dry. Respiratory: Airway is patent Respiratory effort is even, unlabored, Respiratory pattern is regular, symmetrical. GI: No signs and/or symptoms were reported involving the gastrointestinal system. : No signs and/or symptoms were reported regarding the genitourinary system. EENT: No signs and/or symptoms were reported regarding the EENT system. Derm: Skin is intact, Skin is pink, warm \\T\\ dry. Musculoskeletal: Circulation, motion, and sensation intact. Range of motion:. 20:12 Reassessment: Patient appears in no apparent distress at this time. Patient and/or jb4 family updated on plan of care and expected duration. Pain level reassessed. Patient is alert, oriented x 3, equal unlabored respirations, skin warm/dry/pink. Patient states feeling better. Patient states symptoms have improved. Vital Signs: 18:24 BP 137 / 81; Pulse 122; Resp 18 S; Temp 97.7(TE); Pulse Ox 98% on R/A; Weight 90.72 kg jd3 (R); Height 5 ft. 3 in. (160.02 cm) (R); Pain 10/10; 19:47 BP 124 / 75; Pulse 89; Resp 16; Pulse Ox 96% on R/A; jb4 18:24 Body Mass Index 35.43 (90.72 kg, 160.02 cm) jd3 ED Course: 18:17 Patient arrived in ED. am2 18:20 Tierra Gay FNP-C [facility]. kb 18:20 Perry Pires MD is Attending Physician. kb 18:24 Triage completed. jd3 18:25 Arm band placed on. jd3 18:30 Patient has correct armband on for positive identification. Bed in low position. Call jb4 light in reach. Side rails up X 1. Pulse ox on. NIBP on. 18:44 Inserted saline lock: 20 gauge in right antecubital area, using aseptic technique. ld1 Blood collected. 18:45 Loyal, Govind, RN is Primary Nurse. jb4 19:32 CT Stone Protocol In Process Unspecified. EDMS 20:13 No provider procedures requiring assistance completed. IV discontinued, intact, jb4 bleeding controlled, Pressure dressing applied. Administered Medications: 18:43 Drug: NS 0.9% 1000 ml Route: IV; Rate: 1000 ml; Site: right antecubital; ld1 20:13 Follow up: Response: No adverse reaction; IV Status: Completed infusion; IV Intake: jb4 1000ml 18:43 Drug: Ketorolac 30 mg Route: IVP; Site: right antecubital; ld1 20:13 Follow up: Response: No adverse reaction; Marked relief of symptoms; Pain is decreased jb4 18:43 Drug: Zofran (Ondansetron) 4 mg Route: IVP; Site: right antecubital; ld1 20:13 Follow up: Response: No adverse reaction; Marked relief of symptoms jb4 Intake: 20:13 IV: 1000ml; Total: 1000ml. jb4 Outcome: 19:46 Discharge ordered by . kb 20:13 Discharged to home ambulatory. jb4 20:13 Condition: stable 20:13 Discharge instructions given to patient, Instructed on discharge instructions, follow up and referral plans. medication usage, Demonstrated understanding of instructions, follow-up care, medications, Prescriptions given X 1. 20:13 Patient left the ED. jb4 Signatures: Dispatcher [employer] EDMS Tierra Gay, HOIST WORKER-C HOIST WORKER-CkGovind Joseph RN RN jb4 Wendy Denton Jonathon, RN RN jd3 Belle Mckeon RN RN ld1
[2021-07-22 03:49] VITALS: TEMP 97.7
[2021-07-22 03:51] VITALS: BP 124/75; O2SAT 96
== END 2021-07-21 20:13 | disposition home or self-care (01) ==
LOC: ER 18:16
DX: M54.50 Low back pain, unspecified (principal); R11.2 Nausea with vomiting, unspecified; E78.00 Pure hypercholesterolemia, unspecified; F41.9 Anxiety disorder, unspecified; K21.9 Gastro-esophageal reflux disease without esophagitis; Z87.442 Personal history of urinary calculi; Z79.82 Long term (current) use of aspirin; Z88.8 Allergy status to other drugs, medicaments and biological substances
CPT/HCPCS: 96361; 85025; 80048; 36415; 76377; 74176; 96375; 96374; 99284; J7030; J2405; 81003; 81015

== ENCOUNTER 2021-12-19 18:14 | Emergency (ER) | payer OTHER ==
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
[2021-12-19] MEDS ORDERED: NA CHLORIDE 0.9% 500 ML ONE (20:12)
[2021-12-19 20:19] LABS: Urine Blood 2+ (Negative); Urine Glucose Negative (Negative); Urine Protein Negative (Negative); Urine Specific Gravity 1.025 (1.005-1.030)
[2021-12-19 20:48] LABS: Albumin 3.7 g/dL (3.4-5.0); Bilirubin Total 0.1 mg/dL (0.2-1.0); Potassium 3.9 mmol/L (3.5-5.1); Protein, Total 7.7 g/dL (6.4-8.2); Troponin High Sensitivity 3.3 pg/mL (<58.9)
--- NOTE | 2021-12-19 20:50 | RAD REPORT ---
EXAM DESCRIPTION: Rafita Fuentes And Funmilayo (2 Views)12/19/2021 8:40 pm CLINICAL HISTORY: Chest pain COMPARISON: 2020 FINDINGS: The lungs appear clear of acute infiltrate. The heart is normal size IMPRESSION: No acute abnormalities displayed
--- NOTE | 2021-12-19 21:04 | EDPHYS ---
Physician Documentation [facility] Name: Cecille Del Cid Age: 51 yrs Sex: Female : 1970 Arrival Date: 12/19/2021 Time: 18:18 Bed 14 Private MD: ZOHAIB Physician Joel Lyman HPI: 12/19 20:02 This 51 yrs old Female presents to ER via Ambulatory with complaints of sara Fever, Headache, Congestion. Historical: - Allergies: 18:53 Phenergan; iw - Home Meds: 18:53 atorvastatin 20 mg Oral tab 1 tab once daily [Active]; Tae Chewable Aspirin 81 mg iw Oral chew 1 tab once daily [Active]; famotidine 10 mg Oral chew 1 tab once daily [Active]; - PMHx: 18:53 GERD; High Cholesterol; anxiey; iw 18:54 Hypothyroidism; iw - PSHx: 18:53 section; Cholecystectomy; hysterectomy; mass under right breast removal; Right iw foot sx; - Immunization history:: Adult Immunizations Client reports having NOT received the Covid vaccine. - Social history:: Smoking status: Patient reports the use of cigarette tobacco products. ROS: 20:03 Constitutional: Negative for fever, chills, and weight loss, Eyes: Negative for injury, sara pain, redness, and discharge, Neck: Negative for injury, pain, and swelling, Abdomen/GI: Negative for abdominal pain, nausea, vomiting, diarrhea, and constipation, Back: Negative for injury and pain, : Negative for injury, bleeding, discharge, and swelling, MS/Extremity: Negative for injury and deformity, Skin: Negative for injury, rash, and discoloration, Neuro: Negative for headache, weakness, numbness, tingling, and seizure. 20:03 ENT: Positive for sinus congestion, sinus pain, sore throat. 20:03 Cardiovascular: Positive for chest pain. 20:03 Respiratory: Positive for cough, shortness of breath, at rest. Exam: 20:03 Constitutional: This is a well developed, well nourished patient who is awake, alert, sara and in no acute distress. Head/Face: Normocephalic, atraumatic. Eyes: Pupils equal round and reactive to light, extra-ocular motions intact. Lids and lashes normal. Conjunctiva and sclera are non-icteric and not injected. Cornea within normal limits. Periorbital areas with no swelling, redness, or edema. Neck: Trachea midline, no thyromegaly or masses palpated, and no cervical lymphadenopathy. Supple, full range of motion without nuchal rigidity, or vertebral point tenderness. No Meningismus. Chest/axilla: Normal chest wall appearance and motion. Nontender with no deformity. No lesions are appreciated. Cardiovascular: Regular rate and rhythm with a normal S1 and S2. No gallops, murmurs, or rubs. Normal PMI, no JVD. No pulse deficits. Respiratory: Lungs have equal breath sounds bilaterally, clear to auscultation and percussion. No rales, rhonchi or wheezes noted. No increased work of breathing, no retractions or nasal flaring. Abdomen/GI: Soft, non-tender, with normal bowel sounds. No distension or tympany. No guarding or rebound. No evidence of tenderness throughout. Back: No spinal tenderness. No costovertebral tenderness. Full range of motion. Skin: Warm, dry with normal turgor. Normal color with no rashes, no lesions, and no evidence of cellulitis. MS/ Extremity: Pulses equal, no cyanosis. Neurovascular intact. Full, normal range of motion. Neuro: Awake and alert, GCS 15, oriented to person, place, time, and situation. Cranial nerves II-XII grossly intact. Motor strength 5/5 in all extremities. Sensory grossly intact. Cerebellar exam normal. Normal gait. Psych: Awake, alert, with orientation to person, place and time. Behavior, mood, and affect are within normal limits. 20:03 ENT: Posterior pharynx: Tonsils: are normal in appearance, Uvula: normal, swelling, is not appreciated, erythema, that is mild. 20:03 Musculoskeletal/extremity: DVT Exam: No signs of deep vein thrombosis. no pain, no swelling, no tenderness, negative Homans' sign noted on exam, no appreciated bluish discoloration, no erythema, no increased warmth. 20:10 ECG was reviewed by the Attending Physician. sara Vital Signs: 18:52 BP 120 / 82; Pulse 95; Resp 18; Temp 97.6; Pulse Ox 99% on R/A; iw 20:20 BP 128 / 89; Pulse 86; Resp 18 S; Pulse Ox 98% on R/A; as6 21:26 BP 136 / 96; Pulse 87; Resp 20 S; Pulse Ox 98% on R/A; as6 MDM: 19:22 Patient medically screened. [facility] 20:07 Differential diagnosis: viral Infection, bacterial infection, URI, bronchitis, sara pneumonia UTI. Data reviewed: vital signs, nurses notes, lab test result(s), EKG, radiologic studies, plain films. Data interpreted: typing secretary: rate is 95 beats/min, rhythm is regular, Pulse oximetry: on room air is 99 %. Test interpretation: by ED physician or midlevel provider: ECG, plain radiologic studies. Counseling: I had a detailed discussion with the patient and/or guardian regarding: the historical points, exam findings, and any diagnostic results supporting the discharge/admit diagnosis, lab results, radiology results, the need for outpatient follow up, for definitive care, a family practitioner. 12/19 18:56 Order name: SARS-COV-2 RT PCR (Document "Date of Onset" if Symptomatic); Complete Time: 20:39 12/19 18:56 Order name: Flu; Complete Time: 20:02 12/19 19:52 Order name: Comprehensive Metabolic Panel; Complete Time: 21:03 [facility] 12/19 19:52 Order name: D-Dimer; Complete Time: 20:39 [facility] 12/19 19:52 Order name: Troponin High Sensitivity; Complete Time: 21:03 [facility] 12/19 20:19 Order name: Urine Dipstick-Ancillary; Complete Time: 20:39 [facility] 12/19 19:52 Order name: EKG; Complete Time: 19:52 [facility] 12/19 19:52 Order name: EKG - Nurse/Tech; Complete Time: 20:18 [facility] 12/19 19:52 Order name: Chest Pa And Lat (2 Views) XRAY; Complete Time: 21:03 [facility] 12/19 19:52 Order name: Urine Dipstick-Ancillary (obtain specimen); Complete Time: 20:18 sara EC:10 Rate is 78 beats/min. Rhythm is regular. QRS [place] is Normal. MI interval is normal. QRS sara interval is normal. QT interval is normal. No Q waves. T waves are Normal. No ST changes noted. Clinical impression: NSR w/ Non-specific ST/T Changes and No evidence of ischemia. Interpreted by me. Reviewed by me. Administered Medications: 20:10 Drug: NS 0.9% 500 ml Route: IV; Rate: bolus; Site: right antecubital; as6 : Follow up: Response: No adverse reaction; IV Status: Completed infusion; IV Intake: as6 500ml 21:25 Drug: Zithromax (azithromycin) 500 mg Route: PO; as6 : Follow up: Response: No adverse reaction as6 21:25 Drug: Pepcid (famotidine) 40 mg Route: PO; as6 : Follow up: Response: No adverse reaction as6 : Drug: Aspirin Chewable Tablet 324 mg Route: PO; as6 : Follow up: Response: No adverse reaction as6 Disposition Summary: 12/19/21 21:04 Discharge Ordered Location: Home sara Problem: new sara Symptoms: have improved sara Condition: Fair sara Diagnosis - Acute upper respiratory infection, unspecified sara - Acute bronchitis, unspecified sara - Chest pain, unspecified sara Followup: sara - With: Private Physician - When: 2 - 3 days - Reason: Recheck today's complaints, Continuance of care, Re-evaluation by your physician Followup: sara - With: - When: 2 - 3 days - Reason: Recheck today's complaints, Re-evaluation by your physician Discharge Instructions: - Discharge Summary Sheet sara - Nonspecific Chest Pain, Adult sara - Cool Mist Vaporizer sara - Nonspecific Chest Pain, Adult, [id number] sara - Upper Respiratory Infection, Adult, Utga-xs-[id number] sara - Aspirin and Your Heart sara - Cough, Adult sara Forms: - Medication Reconciliation Form sara - Thank You Letter sara - Antibiotic Education sara - Prescription Opioid Use [facility] Prescriptions: - Pepcid 20 mg Oral Tablet - take 1 tablet by ORAL route every 12 hours for 21 days; 42 tablet; Refills: 0, [facility] Product Selection Permitted - Tessalon Perles 100 mg Oral Capsule - take 2 capsule by ORAL route every 8 hours As needed; 45 capsule; Refills: 0, [facility] Product Selection Permitted - Zithromax Z-Manny 250 mg Oral Tablet - take 1 tablet by ORAL route as directed for 5 days Day 1 - take two (2) tablets sara one time. Day 2, 3, 4 , 5 take one (1) tablet once daily.; 6 tablet; Refills: 0, Product Selection Permitted - albuterol sulfate 90 mcg/actuation Inhalation HFA aerosol inhaler - inhale 2 puff by INHALATION route every 4-6 hours; 2 Pump; Refills: 0, Product sara Selection Permitted - budesonide 180 mcg/actuation Inhalation aerosol powdr breath activated - inhale 1 puff by INHALATION route 2 times per day; 1 Pump; Refills: 0, Product sara Selection Permitted Signatures: Dispatcher [employer] Jeol Deal MD MD cha Williams, Irene, RN RN iw Slawson, Ashby, RN RN as6
--- NOTE | 2021-12-19 21:04 | ER ---
Nurse's Notes [facility] Name: Cecille Del Cid Age: 51 yrs Sex: Female : 1970 Arrival Date: 12/19/2021 Time: 18:18 Bed 14 Private MD: Diagnosis: Acute upper respiratory infection, unspecified;Acute bronchitis, unspecified;Chest pain, unspecified Presentation: 12/19 18:52 Chief complaint: Patient states: my head has been stopped up, runny nose, cough, iw sneezing, cant smell or taste , X 3 days , also running fever since last night. Coronavirus screen: Client presents with at least one sign or symptom that may indicate coronavirus-19. Ebola Screen: Patient negative for fever greater than or equal to 101.5 degrees Fahrenheit, and additional compatible Ebola Virus Disease symptoms Patient denies exposure to infectious person. Patient denies travel to an Ebola-affected area in the 21 days before illness onset. No symptoms or risks identified at this time. Initial Sepsis Screen: Does the patient meet any 2 criteria? No. Patient's initial sepsis screen is negative. Does the patient have a suspected source of infection? No. Patient's initial sepsis screen is negative. Risk Assessment: Do you want to hurt yourself or someone else? Patient reports no desire to harm self or others. Onset of symptoms was December 16, 2021. 18:52 Method Of Arrival: Ambulatory iw 18:52 Acuity: ALLI 4 iw 19:10 Acuity: ALLI 3 iw Historical: - Allergies: 18:53 Phenergan; iw - Home Meds: 18:53 atorvastatin 20 mg Oral tab 1 tab once daily [Active]; Tae Chewable Aspirin 81 mg iw Oral chew 1 tab once daily [Active]; famotidine 10 mg Oral chew 1 tab once daily [Active]; - PMHx: 18:53 GERD; High Cholesterol; anxiey; iw 18:54 Hypothyroidism; iw - PSHx: 18:53 section; Cholecystectomy; hysterectomy; mass under right breast removal; Right iw foot sx; - Immunization history:: Adult Immunizations Client reports having NOT received the Covid vaccine. - Social history:: Smoking status: Patient reports the use of cigarette tobacco products. Screenin:40 Abuse screen: Denies threats or abuse. Denies injuries from another. Nutritional as6 screening: No deficits noted. Tuberculosis screening: No symptoms or risk factors identified. Fall Risk None identified. Assessment: 20:19 General: Appears in no apparent distress. ill, Behavior is calm, cooperative. Pain: as6 Complains of pain in generalized. Neuro: Level of Consciousness is awake, alert, Reports headache. Respiratory: Reports cough that is Respiratory effort is even, unlabored. GI: Reports diarrhea. EENT: Reports nasal congestion. Vital Signs: 18:52 BP 120 / 82; Pulse 95; Resp 18; Temp 97.6; Pulse Ox 99% on R/A; iw 20:20 BP 128 / 89; Pulse 86; Resp 18 S; Pulse Ox 98% on R/A; as6 21:26 BP 136 / 96; Pulse 87; Resp 20 S; Pulse Ox 98% on R/A; as6 ED Course: 18:18 Patient arrived in ED. as 18:53 Triage completed. iw 18:53 Arm band placed on. iw 19:08 Homar Arnett, HANNAH is Primary Nurse. as6 19:22 Joel Lyman MD is Attending Physician. sara 19:40 Bed in low position. Call light in reach. Side rails up X 1. as6 20:10 Inserted saline lock: 20 gauge in right antecubital area, using aseptic technique. as6 Blood collected. 20:42 Chest Pa And Lat (2 Views) XRAY In Process Unspecified. EDMS 21:04 Fransisco Loaiza MD is Referral Physician. sara 21:26 No provider procedures requiring assistance completed. IV discontinued, intact, as6 bleeding controlled, No redness/swelling at site. Pressure dressing applied. Administered Medications: 20:10 Drug: NS 0.9% 500 ml Route: IV; Rate: bolus; Site: right antecubital; as6 21:27 Follow up: Response: No adverse reaction; IV Status: Completed infusion; IV Intake: as6 500ml 21:25 Drug: Zithromax (azithromycin) 500 mg Route: PO; as6 21:27 Follow up: Response: No adverse reaction as6 21:25 Drug: Pepcid (famotidine) 40 mg Route: PO; as6 21:27 Follow up: Response: No adverse reaction as6 21:25 Drug: Aspirin Chewable Tablet 324 mg Route: PO; as6 21:27 Follow up: Response: No adverse reaction as6 Medication: 21:26 VIS not applicable for this client. as6 Intake: 21:27 IV: 500ml; Total: 500ml. as6 Outcome: 21:04 Discharge ordered by . sara 21: Discharged to home ambulatory. as6 21:26 Condition: stable 21:26 Discharge instructions given to patient, Instructed on discharge instructions, follow up and referral plans. medication usage, Demonstrated understanding of instructions, follow-up care, medications, Prescriptions given X 5 21: Patient left the ED. as6 Signatures: Dispatcher [employer] EDOR Joel Lyman MD MD cha Martinez, Amelia as Williams, Irene, HANNAH RN iw Homar Arnett RN RN as6 Corrections: (The following items were deleted from the chart) 18:55 18:52 Pulse 95bpm; Resp 18bpm; Pulse Ox 99% RA; Temp 97.6F; iw iw 19:10 18:52 Chief complaint: Patient states: my head has been stopped up, runny nose, cough, iw sneezing, cant smell or taste , X 3 days , also running fever since last night iw
[2021-12-19] MEDS ORDERED: AZITHROMYCIN 250 MG TAB ONE (21:27)
[2021-12-19] MEDS ORDERED: ASPIRIN 81 MG CHEWABLE TABLET ONE (21:27)
[2021-12-19] MEDS ORDERED: FAMOTIDINE 20 MG TAB ONE (21:27)
[2021-12-19 22:31] VITALS: TEMP 97.6
[2021-12-19 22:32] VITALS: O2SAT 98
[2021-12-19 22:35] VITALS: BP 136/96
--- NOTE | 2021-12-20 11:31 | EKG ---
Test Date: 2021-12-19 Test Time: 20:02:57 Production Support Developer: MEASUREMENT RESULTS: Intervals: Rate: 78 NM: 142 QRSD: 86 QT: 372 QTc: 424 [place]: P: 44 NM: 142 QRS: 23 T: 60 INTERPRETIVE STATEMENTS: Normal sinus rhythm Normal ECG Compared to ECG 04/21/2021 01:41:41 No significant changes Electronically Signed On 12-20-21 11:30:41 CDT by Fransisco Loaiza
== END 2021-12-19 21:27 | disposition home or self-care (01) ==
LOC: ER 18:14
DX: J20.9 Acute bronchitis, unspecified (principal); J06.9 Acute upper respiratory infection, unspecified; R07.9 Chest pain, unspecified; E78.00 Pure hypercholesterolemia, unspecified; F41.9 Anxiety disorder, unspecified; E03.9 Hypothyroidism, unspecified; Z20.822 Contact with and (suspected) exposure to COVID-19; Z79.82 Long term (current) use of aspirin
CPT/HCPCS: 93005; 36415; 85379; 81003; 84484; 80053; 87804 ×2; 71046; 96360; 99284; U0003; J7040